=== PATIENT | male | born 1950 | race Caucasian/White ===

== ENCOUNTER 2017-05-02 07:42 | Outpatient (CLI) | payer MEDICARE ==
--- NOTE | 2017-05-02 10:22 | CT ---
CT CHEST AND ABDOMEN WITH IV CONTRAST: TECHNIQUE: Multiple axial tomograms obtained through the chest, abdomen, and pelvis with IV enhancement. HISTORY: Esophageal cancer. Followup. Esophageal surgery in 2015. COMPARISON: There are no comparison exams. FINDINGS: CT CHEST: There are chronic lung changes with mild hyperexpansion. There is a gastric [id number]-[id number] proced ure consistent with a history of prior esophagectomy. There are nonspecific mediastinal lymph nodes seen. There is a carinal lymph node measuring 1.5 cm. There is a small paratracheal lymph node measuring 1.2 cm. There are other tiny subcentimeter parat car[place] lymph nodes identified. Postoperative changes in the mediastinum are noted consistent with t his procedure with numerous surgical clips. There is a small right pleural effusion and there is rig ht basilar atelectasis. An area of pleural-based rounded atelectasis is seen in the peripheral right lower lung. In the left lung, there is a small 5 mm nodule in the mid left upper lobe. There is another tiny 3-4 mm pleural-based nodule in the posterior left lower lobe. No axillary adenopathy. Osseous structures unremarkable. IMPRESSION: 1. Postop changes from esophagectomy and gastric pull-through procedure. 2. Nonspecific mediastinal lymph nodes. A carinal lymph node measures 1.5 cm. 3. Small right effusion and mild right pleural thickening with right basilar atelectasis. These may represent chronic changes from the operative procedure. 4. Small nodule in the left upper lobe and a tiny pleural-based nodule in the left lower lobe as mio cribed above. CT ABDOMEN: The liver, spleen, and pancreas are unremarkable. Adrenal glands and kidneys unremarkable. There is a small low-density lesion in the medial left kidney measuring approximately 7 mm, which is too smal l to characterize, but is suggestive of a small cortical cyst. No evidence of paraaortic adenopathy. The abdominal aorta is ectatic with peripheral calcification. Aortic diameter measured at 2.9 cm indicating mild aneurysmal dilatation. The visualized small bowel loops are normal caliber. There is stool throughout the visualized colon with evidence of diverticula in the left colon. The mid and lower left colon is not imaged on this a bdomen-only exam. The osseous structures are unremarkable. Degenerative changes in the spine. IMPRESSION: 1. Mild aneurysmal dilatation of the abdominal aorta. 2. Tiny low-density probable cystic lesion right kidney. 3. No adenopathy identified. POS: [facility]
[2017-05-02] MEDS ORDERED: Iopamidol 370 76% 100 ML VIAL ONE (17:24)
== END 2017-05-02 07:43 | disposition home or self-care (01) ==
LOC: CT 07:42
PROVIDERS: ATTEND Internal Medicine Medical Oncology
DX: C15.9 Malignant neoplasm of esophagus, unspecified (principal); J98.11 Atelectasis; J90 Pleural effusion, not elsewhere classified; J92.9 Pleural plaque without asbestos; R91.8 Other nonspecific abnormal finding of lung field; I71.4 Abdominal aortic aneurysm, without rupture; Z90.49 Acquired absence of other specified parts of digestive tract
CPT/HCPCS: 71260; 74160

== ENCOUNTER 2017-11-03 09:21 | Outpatient (CLI) | payer MEDICARE ==
--- NOTE | 2017-11-03 11:45 | CT ---
CT OF CHEST AND ABDOMEN PERFORMED WITH INTRAVENOUS CONTRAST ENHANCEMENT: Comparison: 05-02-17 study. History: GE junction carcinoma, status post resection. Referring physician requested comment on mina al and mediastinal lymph nodes, also on pleural effusion and left lung nodules. FINDINGS: The small left upper lobe pulmonary nodule noted on the previous examination is not even appreciated on today's study. There is no evidence of any infiltrative process demonstrated. A pleural based area of nodularity within the left lower lobe is slightly more prominent on today's study but this may be related to slight differences in slice position and measures 6-7 mm as compared to approximately 4-5 mm on the prior study. The right sided pleural effusion and associated parenchymal change remains st able. Patient has undergone a gastric pull up procedure related to partial esophageal resection. The medias tinal lymph nodes appear stable. The largest right paratracheal to slightly pretracheal node measures 11 mm and a subcarinal lymph node is also stable measuring approximately 1 cm in short axis dimensio n. Surgical clips are seen in the mediastinum related to the surgery. CT OF ABDOMEN PERFORMED WITH INTRAVENOUS CONTRAST ENHANCEMENT: The liver and spleen are unremarkable. Pancreas is mildly atrophic. The gallbladder region appears un remarkable. Right and left adrenal glands are stable in appearance, slight nodularity to the left adrenal is agai n noted. Right and left kidneys are normal in size. Small hypodensities involving both kidneys are st atistically most likely related to tiny cysts. There is no significant periaortic adenopathy. The aor ta is ectatic but not aneurysmal. No significant mediastinal lymphadenopathy. IMPRESSION: 1. Fairly stable overall examination. The left upper lobe pulmonary nodule is not definitely identifi ed on this examination. The pleural based left lower lobe nodule is slightly increased in size, but t hese changes could be related to slice position. 2. Stable mediastinal lymph nodes. The patient is status post gastric pull up procedure. 3. Pleural and parenchymal changes in the right lung are unchanged. 4. Borderline aneurysmal dilatation of the abdominal aorta. 5. Slight nodularity to the left adrenal glands, stable. POS: [facility]
== END 2017-11-03 09:22 | disposition home or self-care (01) ==
LOC: SCSCT 09:21
PROVIDERS: ATTEND Internal Medicine Medical Oncology
DX: C16.0 Malignant neoplasm of cardia (principal); R91.1 Solitary pulmonary nodule; I71.4 Abdominal aortic aneurysm, without rupture; E27.8 Other specified disorders of adrenal gland
CPT/HCPCS: 71260; 74160

== ENCOUNTER 2019-04-29 09:06 | Outpatient (CLI) | payer MEDICARE ==
[2019-04-29 09:49] LABS: Estimated GFR-MDRD - POC Greater than 90
--- NOTE | 2019-04-29 11:12 | CT ---
CT OF THE CHEST WITH IV CONTRAST INDICATION: Esophageal cancer COMPARISON: CT of the thorax dated October 30, 2018 and November 03, 2017 FINDINGS: CHEST: Lungs: The left lower lobe subpleural pulmonary nodule has increased in size on image 40 of series 3 now measuring 1.2 x 0.7 cm were previously it measured 0.9 x 0.7 cm. No new pulmonary nodules evident. Scattered emphysema is stable. Pleural space: Small right pleural effusion with right basilar atelectasis persists. Mediastinum: The subcarinal lymph node is slightly smaller now measuring 5 mm representing measured 8 mm. The precarinal lymph node previously measuring 1 cm now measures 9 mm. Right paratracheal lymph node is stable measuring 5 mm Upper abdomen:There is stable postsurgical change of a esophagectomy with gastric pull-through proced ure. Osseous structures: There is a stable osteotomy involving the posterior right sixth rib. There is sc attered degenerative and osteoarthritic changes. Soft tissues:Normal. IMPRESSION: 1. Enlarging subpleural left lower lobe pulmonary nodule. 2. Decrease in size of the mediastinal lymph nodes.
== END 2019-04-29 09:07 | disposition home or self-care (01) ==
LOC: CT 09:06
PROVIDERS: ATTEND Internal Medicine Medical Oncology
DX: C16.9 Malignant neoplasm of stomach, unspecified (principal); R91.1 Solitary pulmonary nodule
CPT/HCPCS: 71260; 74160; 82565

== ENCOUNTER 2019-07-22 08:06 | Outpatient (CLI) | payer MEDICARE ==
--- NOTE | 2019-07-22 11:52 | CT ---
CT CHEST WITH IV CONTRAST CT ABDOMEN WITH IV CONTRAST: Date: 07/22/2019 HISTORY: 68-year-old male with malignant neoplasm of lower third of esophagus. Complete remission. COMPARISON: 04/29/2019. FINDINGS: No mediastinal, hilar, or axillary mass or lymphadenopathy seen. The 9.0 mm precarinal lymph node is stable. Right paratracheal and subcarinal lymph nodes measure about 5.0 mm and are stable. The small right pleural effusion with right basilar atelectasis is again seen. The peripheral nodule in the lef t lower lobe measures 1.2 x 1.0 x 1.0 cm. No new pulmonary nodules are identified. No pericardial or left pleural effusion is seen. The liver, spleen, pancreas, and adrenal glands are normal. No calcified gallstones are seen. Low den sity lesions in the kidneys are again noted, likely cysts. No free air, free fluid, or lymphadenopath y seen in the abdomen. There are vascular calcifications without evidence of aneurysmal dilatation of the thoracoabdominal a leigh. There are degenerative changes in the thoracolumbar spine. No osteolytic or osteoblastic lesion s are seen. IMPRESSION: Minimal enlargement of the left lower lobe lung nodule, otherwise stable exam.
== END 2019-07-22 08:07 | disposition home or self-care (01) ==
LOC: SCSCT 08:06
PROVIDERS: ATTEND Internal Medicine Medical Oncology
DX: C16.0 Malignant neoplasm of cardia (principal); R91.8 Other nonspecific abnormal finding of lung field; J90 Pleural effusion, not elsewhere classified
CPT/HCPCS: 71260; 74160; 82565

== ENCOUNTER 2019-10-28 10:35 | Outpatient (CLI) | payer MEDICARE ==
--- NOTE | 2019-10-28 12:51 | NM ---
Exam: Nuclear medicine MUGA scan HISTORY: Long-term drug therapy. Evaluate ejection fraction COMPARISON: None TECHNIQUE: The patient was injected with 28.3 mCi of technetium 99m tagged red blood cells intravenou sly FINDINGS: There is appropriate motion and contractility of the left ventricle. 59.7% ejection fraction IMPRESSION: 59.7% ejection fraction
== END 2019-10-28 10:36 | disposition home or self-care (01) ==
LOC: NM 10:35
PROVIDERS: ATTEND Internal Medicine Medical Oncology
DX: Z51.11 Encounter for antineoplastic chemotherapy (principal); C15.5 Malignant neoplasm of lower third of esophagus; Z79.899 Other long term (current) drug therapy
CPT/HCPCS: 78472; A9604

== ENCOUNTER 2019-12-21 09:49 | Outpatient (CLI) | payer MEDICARE ==
--- NOTE | 2019-12-21 11:04 | CT ---
CT chest with IV contrast: INDICATIONS:Follow-up esophageal neoplasm. COMPARISON:CT chest abdomen 10/14/2019 FINDINGS: Chronic lung parenchymal changes are again noted with early centrilobular emphysematous change. The pleural-based mass left lower lobe which is been followed slightly smaller today. This mass measu res 7 mm craniocaudal today in the coronal plane were is previous measurements recorded at 11 mm. Small nodule previously described anterior left lung, lingular segment does not appear significantly changed. Tiny pleural-based nodular density posterior left lung base medially is unchanged. Pleural thickening and parenchymal changes in the right lung base secondary to surgical procedure rem ain stable. Postoperative changes from prior esophagectomy procedure appear stable. Small mediastinal lymph nodes are unchanged. Thoracic aorta shows atherosclerotic changes and appears stable. Images through upper abdomen again show small retrocrural lymph node on the right measuring 1.2 cm, s table. Small para-aortic lymph node upper abdomen on the left previously described is stable. Soft tissues and chest wall appear unremarkable. Osseous structures are unremarkable. IMPRESSION: 1. The pleural-based nodular density left lower lobe is slightly smaller today as noted above. The ot her previously described nodular opacities in the left lung appear stable as noted above. 2. CT chest and upper abdomen otherwise stable as detailed above.
== END 2019-12-21 09:50 | disposition home or self-care (01) ==
LOC: SCSCT 09:49
PROVIDERS: ATTEND Internal Medicine Medical Oncology
DX: C15.5 Malignant neoplasm of lower third of esophagus (principal); J98.4 Other disorders of lung
CPT/HCPCS: 71260

== ENCOUNTER 2020-03-10 08:59 | Outpatient (CLI) | payer MEDICARE ==
--- NOTE | 2020-03-10 10:23 | CT ---
CT OF THE CHEST WITH IV CONTRAST INDICATION: Follow-up lung nodule and history of esophageal cancer COMPARISON: December 21, 2019 FINDINGS: CHEST: Lungs: The small subpleural pulmonary nodule of the left lower lobe is less prominent than on the mos t recent comparison now measuring 6 mm were previously measured 1.4 cm. Scattered emphysema is stable. Pleural and subpleural thickening involving the right lung base related to a chronic small ri ght pleural effusion is stable. Pleural space: Small chronic right pleural effusion persists. Pleural thickening involving the right lower hemithorax is stable. Mediastinum: The gastric pull-through procedure appears similar. No lymphadenopathy is evident. There are coronary artery and thoracic aortic calcifications. There are prominent mitral annular calcifications. Upper abdomen:No acute abnormality. Osseous structures: No acute osseous abnormality. No destructive osteolytic or osteoblastic lesion i s identified. There is scattered degenerative and osteoarthritic changes. Soft tissues:Normal. IMPRESSION: 1. Decrease in size of the small subpleural nodularity involving the left lower lobe. 2. Stable postprocedural change of esophagectomy with gastric pull-through without evidence of locali zed recurrent disease. 3. Persistent chronic small right pleural effusion with right basilar pleural thickening and subpleur al subsegmental atelectasis.
== END 2020-03-10 09:00 | disposition home or self-care (01) ==
LOC: SCSCT 08:59
PROVIDERS: ATTEND Internal Medicine Medical Oncology
DX: R91.1 Solitary pulmonary nodule (principal); J90 Pleural effusion, not elsewhere classified; J92.9 Pleural plaque without asbestos; J98.11 Atelectasis; J98.4 Other disorders of lung; Z98.890 Other specified postprocedural states
CPT/HCPCS: 71260

== ENCOUNTER 2020-03-17 09:28 | Observation (INO) | payer MEDICARE ==
[2020-03-17 10:45] LABS: Mean Corpuscular HGB CONC 33.6 g/dL (32.0-36.0); Mean Corpuscular Hemoglobin 35.4 pg (27.0-31.0); RBC Distribution Width 17.1 % (11.5-14.5); Red Blood Cell (RBC) Count 1.98 mill/uL (4.70-6.10); White Blood Cell (WBC) Count 13.6 thou/uL (4.8-10.8)
[2020-03-17 11:15] LABS: ALT (SGPT) 20 U/L (8-55); AST (SGOT) 25 U/L (5-34); Albumin 2.9 g/dL (3.4-4.8); Alkaline Phosphatase 94 U/L (40-110); Anion Gap 11 mmol/L (10-20); BUN (Urea Nitrogen) 16 mg/dL (8.4-25.7); Bilirubin, Total 0.9 mg/dL (0.2-1.2); Calc. Creatinine Clearance 0 mL/min (70-130); Carbon Dioxide 24 mmol/L (23-31); Chloride 104 mmol/L (98-107); Estimated GFR-MDRD Greater than 90; Globulin 2.4 g/dL (2.4-3.5); Glucose 132 mg/dL (83-110); Potassium 3.8 mmol/L (3.5-5.1); Protein, Total 5.3 g/dL (5.8-8.1); Sodium 135 mmol/L (136-145)
[2020-03-17 11:25] LABS: Anisocytosis SLIGHT = 6-15 cells (100X) (0-5/hpf); MDiff Complete? YES; Macrocytosis SLIGHT = 6-15 cells (100X) (0-5/hpf); Mean Platelet Volume 10.8 fL (7.4-10.4); Platelet Count 57 thou/uL (130-400); Platelet Morphology Comment Appears Decreased; Poikilocytosis SLIGHT = 6-15 cells (100X) (0-5/hpf); Tear Drops SLIGHT = 2-5 cells (100X) (0-1/hpf)
--- NOTE | 2020-03-17 13:50 | PDOC.HHP ---
Hospitalist HPI - History of Present Illness SOB, anemia History of Present Illness: 69 YO man with a PMH of esophageal CA and Afib who was sent by his skein yarn drier to the ER due to symptomatic anemia. Pt began chemo in October 2019 due to 3 spots (likely mets) noted on his lungs. He gets chemo biweekly and gets his Hg checked monthly. He was noted by his oncologist to be tachycardic a few days ago so was set to his skein yarn drier for further evaluation. At the skein yarn drier office today, HR was controlled but pt was noted with a hg of 7.0 which was fet to be symptomatic. Pt was therefore sent to the ER. He has denied obvious or occult GI loss. Stools are brown. Denies fever nausea, vomiting or abd pain Hospitalist ROS - Review of Systems Constitutional: reports: weakness. denies: fever, chills, sweats, malaise, other Eyes: denies: pain, vision change, conjunctivae inflammation, eyelid inflammation, redness, other ENT: denies: ear pain, ear discharge, nose pain, nose discharge, nose congestion, mouth pain, mouth swelling, throat pain, throat swelling, other Respiratory: denies: cough, dry, shortness of breath, hemoptysis, SOB with excertion, pleuritic pain, sputum, wheezing, other Gastrointestinal: denies: nausea, vomiting, abdominal pain, diarrhea, constipation, melena, hematochezia, other Genitourinary: denies: dysuria, frequency, incontinence, hematuria, retention, other Musculoskeletal: denies: neck pain, shoulder pain, arm pain, back pain, hand pain, leg pain, foot pain, other Neurological: reports: weakness. denies: numbness, incoordination, change in speech, confusion, seizures, other Hospitalist History - Past Medical History Cardiac: reports: AFIB Heme/Onc: reports: Anemia NOS, Cancer - Past Surgical History Past Surgical History: reports: no pertinent history - Family History Family History: reports: hypertension - Social History Smoking Status: Unknown if ever smoked Alcohol: reports: None Drugs: reports: none Living Situation: With Family Domestic Violence: Negative Activity level: independent ambulation - Exam General Appearance: NAD, awake alert Eye: PERRL Eye - other findings: moderate pallor noted ENT: normocephalic atraumatic, no oropharyngeal lesions Neck: supple, symmetric, no JVD, no thyromegaly Heart: RRR, no murmur, no gallops, no rubs, normal peripheral pulses Respiratory: CTAB, no wheezes, no rales, no ronchi Gastrointestinal: soft, non-tender, non-distended, normal bowel sounds Extremities: no cyanosis, no clubbing, no edema Skin: normal turgor, no lesions, no rashes Neurological: cranial nerve grossly intact, no focal deficits Musculoskeletal: normal strength, no muscle wasting Psychiatric: normal affect, normal behavior, A&O x 3 Hospitalist Results - Labs Result Diagrams: 03/17/20 10:03/17/20 10:31 Lab results: WBC 13.6 thou/uL (4.8-10.8) H 03/17/20 10: Hgb 7.0 g/dL (14.0-18.0) L 03/17/20 10: Hct 20.9 % (42.0-52.0) L 03/17/20 10: MCV 105.0 fL (78.0-98.0) H 03/17/20 10:31 Plt Count 57 thou/uL (130-400) L 03/17/20 10:31 Sodium 135 mmol/L (136-145) L 03/17/20 10:31 Potassium 3.8 mmol/L (3.5-5.1) 03/17/20 10: Chloride 104 mmol/L (98-107) 03/17/20 10: Carbon Dioxide 24 mmol/L (23-31) 03/17/20 10: BUN 16 mg/dL (8.4-25.7) 03/17/20 10:31 Creatinine 0.68 mg/dL (0.7-1.3) L 03/17/20 10:31 Glucose 132 mg/dL (83-110) H 03/17/20 10:31 Lactic Acid 1.0 mmol/L (0.5-2.2) 03/17/20 10: Calcium 8.0 mg/dL (7.8-10.44) 03/17/20 10: Total Bilirubin 0.9 mg/dL (0.2-1.2) 03/17/20 10: AST 25 U/L (5-34) 03/17/20 10:31 ALT 20 U/L (8-55) 03/17/20 10:31 Alkaline Phosphatase 94 U/L (40-110) 03/17/20 10:31 Serum Total Protein 5.3 g/dL (5.8-8.1) L 03/17/20 10:31 Albumin 2.9 g/dL (3.4-4.8) L 03/17/20 10:31 Hospitalist H&P A/P - Problem (1) Afib Code(s): I48.91 - UNSPECIFIED ATRIAL FIBRILLATION Status: Acute Qualifiers: Atrial fibrillation type: unspecified Qualified Code(s): I48.91 - Unspecified atrial fibrillation Assessment and Plan: Currently rate controlled. Will cont BB and Digoxin. Monitor on Telemetry. (2) Anemia Code(s): D64.9 - ANEMIA, UNSPECIFIED Status: Acute Qualifiers: Anemia type: unspecified type Qualified Code(s): D64.9 - Anemia, unspecified Assessment and Plan: Likely due to cancer. Pt denies any symp of blood loss. Will check FOBT and FE levels. Will transfuse one unit of PRBCs. Monitor Hg levels. (3) Esophageal cancer Status: Acute Assessment and Plan: Currently getting chemo. Pt can f/u with his Oncologist at d/c. - Plan Plan: PPx: SCDs. CODE: FULL. Dispo: Admit as observation, likely dc tmr.
[2020-03-17 15:03] VITALS: BMI 23.7
[2020-03-17] MEDS ORDERED: FLU VACC QS2020-21(65YR UP)/PF 240 MCG/0.7 ML SYRINGE IM ONE (15:15)
[2020-03-17 19:33] LABS: INR-International Normal Ratio 2.3; Prothrombin Time 25.8 sec (12.0-14.7)
[2020-03-17] MEDS ORDERED: Olmesartan 5 MG TAB PO SCH (21:00)
[2020-03-17] MEDS ORDERED: Warfarin Sodium 2 MG TAB PO SCH (21:00)
[2020-03-17] MEDS ORDERED: Losartan 25 MG TAB PO SCH (21:00)
[2020-03-18 04:33] LABS: INR-International Normal Ratio 2.6; Prothrombin Time 28.6 sec (12.0-14.7)
[2020-03-18] MEDS ORDERED: Atorvastatin Calcium 20 MG TAB PO SCH (09:00)
[2020-03-18] MEDS ORDERED: Losartan 25 MG TAB PO SCH (09:00)
[2020-03-18] MEDS ORDERED: Digoxin 0.125 MG TAB PO SCH (09:00)
[2020-03-18] MEDS ORDERED: Non-Formulary Item 1 EACH (Omeprazole [Omeprazole] 20 MG Capsule.Dr) PO SCH (09:00)
[2020-03-18 09:31] LABS: Hemoglobin 8.1 g/dL (14.0-18.0); Platelet Count 47 thou/uL (130-400)
[2020-03-18] MEDS ORDERED: Furosemide 20 MG/2 ML VIAL IVP SCH (14:45)
[2020-03-18] MEDS ORDERED: Warfarin Sodium 2 MG TAB PO SCH (17:00)
--- NOTE | 2020-03-18 17:13 | PDOC.DS.DS ---
Provider - Provider Date of Admission: 03/17/20 12:34 Date of Discharge: 03/18/20 Admitting Provider: Tre Spain MD Consultations: None Primary Care Physician: Quinten Stoner MD Course - Hospital Course Hospital Course: This is a 69-year-old patient whose medical history includes esophageal cancer currently undergoing immunotherapy on outpatient basis. He was sent into the hospital by his clinical fellow after he was noted to be anemic with a hemoglobin of 7.1. He has not had any issues with rectal bleeding. He denied any dark stools. Reportedly his hemoglobin was 7 when he arrived at his clinical fellow clinic and he was symptomatic and he was advised to go to the hospital for an evaluation. He arrived here where his lab work was essentially unremarkable with exception of his hemoglobin that was 7.1. He has since been transfused 2 units of packed red cells with improvement in his hemoglobin. He otherwise is completely asymptomatic. He is able to get around fairly well with his cane. At this point in time he seems to have reached optimal hospital benefit and he is going to be discharged home today. Resuscitation Status: 03/17/20 13:13 Resuscitation Status Routine Resuscitation Status: FULL: Full Resuscitation Discussed with: pt - Labs Lab Results: 03/18/20 09:08 03/17/20 10:31 Abnormal Lab Results - Last 48 hrs 03/17/20 10:31: Sodium 135 L, Creatinine 0.68 L, Serum Total Protein 5.3 L, Albumin 2.9 L 03/17/20 10:31: WBC 13.6 H, RBC 1.98 L, Hgb 7.0 L, Hct 20.9 L, MCV 105.0 H, MCH 35.4 H, RDW 17.1 H, Plt Count 57 L, MPV 10.8 H, Plt Morphology Comment Appears Decreased L 03/17/20 11:00: Crossmatch See Detail 03/17/20 19:19: PT 25.8 H 03/18/20 04:05: PT 28.6 H 03/18/20 09:08: Hgb 8.1 L, Hct 23.9 L, Plt Count 47 L - Physical Exam Vitals: Vital Signs (12 hours) Temp Pulse Pulse Resp BP BP Pulse Ox 03/18/20 15:37 98.9 F 102 H 18 121/72 99 03/18/20 15:15 98.0 F 112 H 16 118/71 99 03/18/20 11:02 98.5 F 97 16 130/77 99 03/18/20 08:36 96 03/18/20 08:00 98.6 F 98 17 104/63 97 Weight Admit Weight 109 lb 1.6 oz Weight 190 lb 1.6 oz Physical Exam: The patient was seen and examined on the day of discharge. Problem - Discharge Plan Assessment: Patient was seen and evaluated on the day of discharge and he seems to be doing reasonably well. We will discharge him home. - Time spent with Patient (mins): 30 Plan - Discharge Medications Home Medications: Medication Instructions Recorded Confirmed Type Atorvastatin Calcium [Lipitor] 20 mg PO DAILY 03/17/20 03/17/20 History Digoxin [Lanoxin] 0.125 mg PO DAILY 03/17/20 03/17/20 History Metoprolol Succinate [Toprol XL] 50 mg PO DAILY 03/17/20 03/17/20 History Olmesartan Medoxomil [Benicar] 10 mg PO DAILY 03/17/20 03/17/20 History Omeprazole 20 mg PO DAILY 03/17/20 03/17/20 History Warfarin Sodium [Coumadin] 2 mg PO DAILY 03/17/20 03/17/20 History Allergies: No Known Drug Allergies Allergy (Verified 03/17/20 13:04) - Discharge Instructions Activity:: Activity as Tolerated Nourishment:: Heart Healthy Diet Therapies:: Home Health Equipment/Supplies:: Not Applicable IV Therapy:: Not Applicable - Follow up Plan Referrals: Quinten Stoner MD [Primary Care Provider] - Disposition: HOME Quality - Care Measures CORE MEASURES:: N/A
[2020-03-18 18:50] VITALS: BP 123/80; TEMP 98.7
[2020-03-20 00:13] LABS: SARS-CoV-2 MS2 Positive; SARS-CoV-2 N Gene Negative; SARS-CoV-2 S Gene Negative; SARS-CoV-2 by NAA Not Detected (Not Detected); SARS-CoV-2 orf1ab Negative
== END 2020-03-18 18:37 | disposition home or self-care (01) ==
LOC: ERS 09:28 → 2NO 12:34
PROVIDERS: ADMIT Hospitalist; ATTEND Hospitalist
DX: D64.9 Anemia, unspecified (principal); I48.91 Unspecified atrial fibrillation; C15.9 Malignant neoplasm of esophagus, unspecified; Z79.01 Long term (current) use of anticoagulants; Z79.899 Other long term (current) drug therapy; Z87.891 Personal history of nicotine dependence; Z20.828 Contact with and (suspected) exposure to other viral communicable diseases
CPT/HCPCS: 36415; 36430; 80053; 82274; 83605; 85014; 85018; 85025; 85049; 85610; 86850; 86900; 86901; 87635; 93005; J1642; J1940; P9016; U0003

== ENCOUNTER 2020-03-20 09:42 | Inpatient (IN) | payer MEDICARE ==
[2020-03-20 10:27] LABS: INR-International Normal Ratio 1.6; Prothrombin Time 19.8 sec (12.0-14.7)
[2020-03-20 10:41] LABS: Digoxin 0.41 ng/mL (0.8-2.0)
[2020-03-20 10:42] LABS: ALT (SGPT) 21 U/L (8-55); AST (SGOT) 30 U/L (5-34); Albumin 3.5 g/dL (3.4-4.8); Alkaline Phosphatase 77 U/L (40-110); Anion Gap 17 mmol/L (10-20); BUN (Urea Nitrogen) 18 mg/dL (8.4-25.7); Bilirubin, Total 1.7 mg/dL (0.2-1.2); Calc. Creatinine Clearance 0 mL/min (70-130); Calcium 8.8 mg/dL (7.8-10.44); Carbon Dioxide 26 mmol/L (23-31); Chloride 97 mmol/L (98-107); Estimated GFR-MDRD 82; Globulin 2.8 g/dL (2.4-3.5); Glucose 163 mg/dL (83-110); Potassium 4.8 mmol/L (3.5-5.1); Protein, Total 6.3 g/dL (5.8-8.1); Sodium 135 mmol/L (136-145)
--- NOTE | 2020-03-20 10:46 | RAD ---
PORTABLE CHEST 1 VIEW: Date: 03/20/2020 Time: 1031 hours HISTORY: Chest pain. Near syncope. Esophageal cancer. COMPARISON: Strip Stamp Straightener film from CT chest of 03/10/2020. FINDINGS/IMPRESSION: The heart size is normal. A small right pleural effusion is again seen. There has been interval place ment of a right internal jugular Port-A-Cath with tip in the projection of the SVC. No pneumothoraces are seen. No lobar consolidation or left pleural effusion identified. POS: [facility]
[2020-03-20 10:52] LABS: Hemoglobin 9.4 g/dL (14.0-18.0); Mean Corpuscular HGB CONC 35.3 g/dL (32.0-36.0); Mean Corpuscular Hemoglobin 35.7 pg (27.0-31.0); Mean Platelet Volume 15.4 fL (7.4-10.4); Platelet Count 16 thou/uL (130-400); RBC Distribution Width 15.7 % (11.5-14.5); Red Blood Cell (RBC) Count 2.62 mill/uL (4.70-6.10); White Blood Cell (WBC) Count 0.5 thou/uL (4.8-10.8)
[2020-03-20] MEDS ORDERED: Cefepime 2 GM VIAL ONE (10:57)
[2020-03-20 11:18] LABS: Lymphocytes 85 % (21-51); MDiff Complete? YES; Monocytes 7 % (0-10); Neutrophil 4 % (42-75); Platelet Morphology Comment Appears Decreased; RBC Morphology Normal
[2020-03-20] MEDS ORDERED: Vancomycin 1.5 GRAM/300 ML BAG 1.5 GM in Premix Bag 1 BAG IVPB SCH (11:30)
[2020-03-20] MEDS ORDERED: Senokot S 8.6-50 MG TAB PO PRN (12:09)
[2020-03-20] MEDS ORDERED: Acetaminophen 325 MG TAB PO PRN (12:09)
[2020-03-20] MEDS ORDERED: Sodium Chloride 0.9% 1,000 ML IV SCH (12:15)
--- NOTE | 2020-03-20 12:58 | CT ---
CT PULMONARY ANGIOGRAM WITH IV CONTRAST AND 3D POSTPROCESSING: Date: 03/20/2020 HISTORY: Near syncope. Hypertension. Tachycardia. History of esophageal cancer. FINDINGS: Comparison made with CT chest of 03/10/2020. There is good contrast opacification of the pulmonary arterial vasculature without filling defects to suggest pulmonary embolism. The thoracic aorta is well opacified without aneurysm. The chronic small right pleural effusion with right basilar pleural thickening and subpleural subsegm ental atelectatic changes are unchanged. The peripheral 6.0 mm nodule in the left lower lobe has a so mewhat linear appearance with adjacent pleural thickening. The gastric pull-through procedure appears similar. There are degenerative changes in the spine. No p neumothoraces or lobar consolidation seen. IMPRESSION: No CT evidence for pulmonary embolism. POS: [facility]
[2020-03-20] MEDS ORDERED: Diltiazem 125 MG in Sodium Chloride 0.9% 100 ML IVPB SCH (13:30)
[2020-03-20] MEDS ORDERED: Iopamidol-370 76% 500 ML 1 ML ONE (13:46)
[2020-03-20 14:03] LABS: Lactic Acid 1.1 mmol/L (0.5-2.2)
[2020-03-20 14:11] LABS: Troponin I 0.011 ng/mL (< 0.028)
[2020-03-20 14:39] LABS: SARS-CoV-2 NAA Rapid Test Not Detected (NotDetected)
[2020-03-20 17:31] LABS: Troponin I 0.014 ng/mL (< 0.028)
[2020-03-20] MEDS ORDERED: Diltiazem 125 MG/25 ML ONE (18:56)
--- NOTE | 2020-03-20 22:28 | HP ---
CHIEF COMPLAINT: Generalized weakness, presyncope. HISTORY OF PRESENT ILLNESS: The patient is a very pleasant 69-year-old male, with a past medical history of esophageal cancer with possible mets to the lung, currently treated with chemotherapy. He gets it every 2 weeks. Last chemo was about last , who presents to the hospital with near syncope. 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 The patient stated that last , he did present to the ER with dizziness and weakness and at this time he was given some blood transfusion and fluids and was discharged on Friday, which was the . The patient stated that around 9:00 am today he was supposed to travel to his primary care doctor where he had an experience of fecal incontinence. He went back home to get himself cleaned up and he called his doctor about what had happened and his physician informed him to come into the ER. The patient also states that he felt lightheaded, dizzy. He felt he had some palpitations. He felt this way especially when he was standing up. In the ER, he was noted to be in atrial fibrillation with RVR in the heart rate of 150 with profound hypotension. The patient states that he has not been eating or drinking very much for the past few days. He does not have an appetite. At this time, he was not treated with any medications. He was just given some IV hydration and his tachycardia improved without any problems. The patient is on warfarin for his atrial fibrillation. REVIEW OF SYSTEMS: All negative except for the ones mentioned in the HPI. PAST SURGICAL HISTORY: He has esophageal cancer resection. SOCIAL HISTORY: He is a remote smoker, one or two packs per day. Drinks occasionally without any problems. He is a full code. No recreational drug use. He lives with his . FAMILY HISTORY: No history of heart disease or strokes. MEDICATIONS: He is on digoxin, warfarin, carboplatin and Taxol. ALLERGIES: HE HAS NO KNOWN DRUG ALLERGIES. PHYSICAL EXAMINATION: VITAL SIGNS: Temperature of 99.5, respiration 20, pulse of 106, 144/96, 97% on room air. GENERAL: He is awake, alert, and oriented x3. Does not appear in distress. CV: He is irregularly irregular. LUNGS: Clear to auscultation. No rhonchi or wheezes noted. ABDOMEN: Soft and nontender. Bowel sounds are present x2. EXTREMITIES: He has 1+ lower extremity edema. NEUROVASCULAR: There are no focal deficits noted. SKIN: He appears a little pale, however, no cuts or bruises noted. However, he does have significant non palpable purpura to his both hands, which he stated started today. LABORATORY RESULTS: As of the following; WBC of 0.5, hemoglobin of 9.4, hematocrit of 26.6, platelets of 16. He does not have any bands. His neutrophil percentage is 4. Chemistry: Sodium of 135, potassium 4.8, BUN of 18, creatinine 0.91. His lactic acid is 3. His troponins x3 were negative. His serology was negative. His INR was 1.6. He did have a CTA. ASSESSMENT AND PLAN: The patient is a very pleasant 69-year-old male, who presents to the hospital with complaints of presyncope. 1. Atrial fibrillation with rapid ventricular response. We will start patient on some Cardizem. At times he is normal; however, at times he goes up to 150. Cardiology has been consulted. We will continue his home warfarin and also his digoxin. His digoxin level was a little bit subtherapeutic at 0.41. 2. Neutropenia. The patient does not have any fever, however, he states he feels cold. He stated that he did receive a bone stimulating agent on Friday of last week. I will start him on some cefepime just for prophylaxis for now. 3. Thrombocytopenia. His platelets were 16. He is at high risk for bleeding. In this case I will hold off on the Coumadin for now and we will continue to monitor. This is most likely from his chemotherapy. 4. Hyperlipidemia. We will continue his home medication. 5. Deep venous thrombosis prophylaxis. We will put patient on some sequential compression device. Job ID: [id number]
[2020-03-21 01:31] LABS: Bilirubin Negative (Negative); Blood, Urine Negative (Negative); Clarity Clear (Clear); Glucose, Urine (Dipstick) Normal (Negative); Ketone, Urine Trace mg/dL (Negative); Leukocyte Negative Leu/uL (Negative); Nitrite Negative (Negative); Protein, Urine (Dipstick) 20 mg/dL (Neg-Trace); Specific Gravity, Urine 1.049 (1.002-1.036); Urobilinogen Normal mg/dL (Less than 2)
[2020-03-21 01:47] VITALS: BMI 24.0
[2020-03-21] MEDS: Cefepime 2 GM in Sodium Chloride 0.9% 100 ML IVPB SCH ×3 (02:05→23:43)
[2020-03-21 05:11] LABS: Anion Gap 12 mmol/L (10-20); BUN (Urea Nitrogen) 16 mg/dL (8.4-25.7); Calc. Creatinine Clearance 121 mL/min (70-130); Calcium 8.2 mg/dL (7.8-10.44); Carbon Dioxide 23 mmol/L (23-31); Chloride 103 mmol/L (98-107); Estimated GFR-MDRD Greater than 90; Glucose 117 mg/dL (83-110); Potassium 3.7 mmol/L (3.5-5.1); Sodium 134 mmol/L (136-145)
[2020-03-21 05:12] LABS: Hemoglobin 7.1 g/dL (14.0-18.0); Mean Corpuscular HGB CONC 34.8 g/dL (32.0-36.0); Mean Corpuscular Hemoglobin 35.4 pg (27.0-31.0); Mean Platelet Volume 15.2 fL (7.4-10.4); Platelet Count 12 thou/uL (130-400); RBC Distribution Width 15.4 % (11.5-14.5); White Blood Cell (WBC) Count 0.6 thou/uL (4.8-10.8)
[2020-03-21 05:29] LABS: Band 16 % (5-11); Hypochromia SLIGHT = 6-15 cells (100X) (0-5/hpf); Lymphocytes 64 % (21-51); MDiff Complete? YES; Macrocytosis SLIGHT = 6-15 cells (100X) (0-5/hpf); Monocytes 12 % (0-10); Neutrophil 8 % (42-75); Platelet Morphology Comment Appears Decreased
[2020-03-21] MEDS: Digoxin 0.125 MG TAB PO SCH (08:12)
[2020-03-21] MEDS ORDERED: FLU VACC QS2020-21(65YR UP)/PF 240 MCG/0.7 ML SYRINGE IM ONE (09:00)
[2020-03-21 10:16] LABS: Hemoglobin 7.4 g/dL (14.0-18.0); Mean Corpuscular HGB CONC 35.4 g/dL (32.0-36.0); Mean Corpuscular Hemoglobin 35.6 pg (27.0-31.0); Mean Platelet Volume 12.1 fL (7.4-10.4); Platelet Count 32 thou/uL (130-400); RBC Distribution Width 15.2 % (11.5-14.5); Red Blood Cell (RBC) Count 2.08 mill/uL (4.70-6.10)
[2020-03-21 10:42] LABS: Band 11 % (5-11); Lymphocytes 28 % (21-51); Monocytes 29 % (0-10); Neutrophil 31 % (42-75)
[2020-03-21 10:45] LABS: Platelet Morphology Comment Appears Decreased
[2020-03-21 11:41] LABS: MDiff Complete? YES
--- NOTE | 2020-03-21 14:55 | CON ---
DATE OF CONSULTATION: REASON FOR CONSULTATION: Weakness, fatigue, and orthostatic hypotension. HISTORY OF PRESENT ILLNESS: Mr. Arreguin is a 69-year-old gentleman who I seen and evaluated in the past. He has a history of chronic atrial fibrillation, on anticoagulation therapy. He recently states he was on his way to his primary care provider where he felt weak, fatigue, and dizzy. He states his last chemo was last week. He was admitted from the office late last week for blood pressure of 70. He was admitted overnight for blood and hydration. He was then discharged. No chest pain, pressure, shortness of breath, or associated symptoms present. PAST MEDICAL HISTORY: 1. Esophageal cancer, followed by Dr. Staples. 2. Chronic atrial fibrillation. 3. Orthostatic hypotension. HOME MEDICATIONS: Include: 1. Coumadin. 2. Omeprazole. 3. Digoxin. 4. Olmesartan. 5. Metoprolol. 6. Atorvastatin. PAST SURGICAL HISTORY: 1. Corneal transplant. 2. Esophageal surgery. 3. Stomach surgery. 4. Cyst removal. FAMILY HISTORY: Negative for CAD. SOCIAL HISTORY: No current tobacco or alcohol use. REVIEW OF SYSTEMS: A 10-point review of systems is reviewed as above, otherwise negative. PHYSICAL EXAMINATION: GENERAL: Patient is a pleasant gentleman who is in no acute distress. The patient appears their stated age. VITAL SIGNS: Blood pressure 120/74, pulse 98, and temperature afebrile. NEUROLOGIC: The patient is alert and oriented x3 with no focal neurologic deficits. HEENT: Sclerae without icterus. Mouth has moist mucous membranes with normal pallor. NECK: No JVD. Carotid upstroke brisk. No bruits bilaterally. LUNGS: Clear to auscultation with unlabored respirations. BACK: No scoliosis or kyphosis. CARDIAC: Irregularly irregular. ABDOMEN: Soft, nontender, nondistended. No peritoneal signs present. No hepatosplenomegaly. No abnormal striae. EXTREMITIES: 2+ femoral and 2+ dorsalis pedis pulses. No cyanosis, clubbing, or edema. SKIN: No gross abnormalities. PERTINENT LABORATORY DATA: Hemoglobin 7.4, down from 9.2, dated 03/20/2020; platelet count 12,000 and after transfusion 32,000. IMPRESSION: 1. Atrial fibrillation. 2. Esophageal cancer. 3. Presyncope. RECOMMENDATIONS: The patient appears to be rate controlled. His white blood cell count and platelet count in addition to hemoglobin are markedly low, likely related to chemotherapy. We will hold anticoagulation therapy for now given low platelet count. He did require platelet transfusion. The patient does have a history of orthostatic hypotension, which certainly may be difficult to treat based on his previous chemotherapy. We will check and see what his current chemo treatment is and see whether this is associated with orthostatic hypotension. We would like to have his blood pressure run higher than low. We will increase his increase metoprolol if needed to wean off Cardizem. Continue digoxin. Job ID: [id number]
--- NOTE | 2020-03-21 19:53 | CON ---
DATE OF CONSULTATION: REASON FOR CONSULT: GE junction adenocarcinoma. HISTORY OF PRESENT ILLNESS: Mr. 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 He had neoadjuvant chemoradiotherapy followed by resection in July of 2014. Unfortunately, he had disease progression in his lungs in July of this year. He was started on chemotherapy with weekly cisplatin, Taxol, and Herceptin. He was tolerating treatment well and in fact showed a good response with a decrease in the size of a subpleural pulmonary nodule from 1.4 cm to 6 mm. His chemotherapy was dose reduced and we have been slowly increasing his dose to the normal dose. His last treatment was his first cycle where he received full doses of carboplatin and Taxol. He did receive Udenyca posttreatment. He was feeling weak, and saw Dr. Staples on the . His heart rate was in the 140 and 50s. Case was discussed with Dr. Ann, who saw him the next morning and then sent him to the emergency room for evaluation. He was in atrial fibrillation with RVR. He was pancytopenic on admission with a white count of 500, a platelet count of 16,000, and hemoglobin 9.4. He trended downward and required blood transfusion. He was placed on a Cardizem drip and he is now rate controlled. He was seen at bedside, sitting in the chair with no complaints. He does feel dizzy when he stands. 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 PAST MEDICAL HISTORY: 1. 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 2. Atrial fibrillation. 3. Reflux. 4. Hepatitis. 5. Type 2 diabetes. 6. Hypertension. PAST SURGICAL HISTORY: Esophageal resection. ALLERGIES: NO KNOWN DRUG ALLERGIES. HOME MEDICATIONS: 1. Benicar. 2. Multivitamin. 3. Coumadin. 4. Lanoxin. 5. Lipitor. 6. Prilosec. 7. Toprol-XL. FAMILY HISTORY: Noncontributory. SOCIAL HISTORY: , has three stepchildren. Lives with his spouse. No alcohol, tobacco, or illicit drug use. REVIEW OF SYSTEMS: 12-point review of systems is negative, except for noted in the HPI. PHYSICAL EXAMINATION: VITAL SIGNS: Temperature is 98.0, pulse is 92, respiratory rate 16, BP is 121/72, and he is 97% on room air. GENERAL: Well-developed, well-nourished male, in no acute distress. HEENT: Normocephalic, atraumatic. Pupils are equal and reactive to light. CV: Regular rate and rhythm. LUNGS: Unlabored. ABDOMEN: Soft. NEUROLOGIC: Nonfocal. PERTINENT LABORATORY DATA AND X-RAYS: Current WBCs are 1.0, hemoglobin 7.4, hematocrit 20.9, and platelet count 32,000. He has 31% neutrophils, 11% bands, 28% lymphocytes, and 29% monocytes. PT is 19.8, INR is 1.6, and PTT is 36. Sodium is 134, potassium 3.7, chloride 103, CO2 is 23, BUN is 16, creatinine 0.69, lactic acid 1.1, calcium 8.2, bilirubin 1.7, AST is 30, ALT is 21, and alk phos is 77. Troponin is negative. Serum total protein 6.3, albumin 3.5, and globulin 2.8. Urine is negative. COVID PCR negative. CT angio showed no evidence of pulmonary emboli. ASSESSMENT: 1. Syncopal episode, likely related to atrial fibrillation. 2. Recurrent adenocarcinoma of the gastroesophageal junction, currently on carboplatin, Taxol, and Herceptin chemotherapy. 3. Pancytopenia secondary to chemotherapy. DISCUSSION: Patient's heart rate is now controlled. His white count has improved. I do expect it would continue to improve over the next several days. He did receive Udenyca and he is starting to have bands on his differential. I think his platelets will continue to improve as well. His Coumadin has been held and should be held until his platelet count is greater than 50,000. This was his first cycle with full-dose carboplatin and Taxol. We will discuss the dose reduction again with Dr. Staples. Thank you for the consult. We will follow with his hospital course. Job ID: [id number]
[2020-03-21] MEDS: Atorvastatin Calcium 20 MG TAB PO SCH (20:38)
[2020-03-22] MEDS: Digoxin 0.125 MG TAB PO SCH (09:13)
[2020-03-22 09:40] LABS: Hemoglobin 8.4 g/dL (14.0-18.0); Mean Corpuscular HGB CONC 35.5 g/dL (32.0-36.0); Mean Corpuscular Hemoglobin 35.2 pg (27.0-31.0); Mean Corpuscular Volume 99.3 fL (78.0-98.0); Mean Platelet Volume 12.9 fL (7.4-10.4); Platelet Count 35 thou/uL (130-400); Red Blood Cell (RBC) Count 2.39 mill/uL (4.70-6.10); White Blood Cell (WBC) Count 3.7 thou/uL (4.8-10.8)
[2020-03-22 10:16] LABS: Band 26 % (5-11); Lymphocytes 10 % (21-51); MDiff Complete? YES; Metamyelocyte 1 % (0-0); Monocytes 12 % (0-10); Neutrophil 49 % (42-75); Platelet Morphology Comment Appears Decreased; Polychromasia SLIGHT = 2-3 cells (100X) (0-2/hpf); Reactive Lymphocytes 2 % (0-10)
[2020-03-22] MEDS: Cefepime 2 GM in Sodium Chloride 0.9% 100 ML IVPB SCH ×2 (10:20→21:55)
--- NOTE | 2020-03-22 10:48 | PDOC.HOSPP ---
- Subjective Encounter Date: 03/21/20 Encounter Time: 11:45 Subjective: pt up in bed felt dizzy - Objective Vital Signs & Weight: Vital Signs (12 hours) Temp Pulse Resp BP Pulse Ox 03/22/20 09:13 82 03/22/20 07:25 98.4 F 96 17 116/65 97 03/22/20 03:22 98.3 F 94 15 123/72 97 Weight Weight 192 lb Most Recent Monitor Data NIBP 121/80 I&O: 03/21/20 03/22/20 03/23/20 06:59 06:59 06:59 Intake Total 1630 Output Total 700 Balance 930 Result Diagrams: 03/22/20 09:13 03/21/20 04:07 Hospitalist ROS - Review of Systems Cardiovascular: reports: light headedness Gastrointestinal: denies: nausea, vomiting, abdominal pain, diarrhea, constipation, melena, hematochezia, other Genitourinary: denies: dysuria, frequency, incontinence, hematuria, retention, other Musculoskeletal: denies: neck pain, shoulder pain, arm pain, back pain, hand pain, leg pain, foot pain, other - Medication Medications: Active Medications Generic Name Dose Route Start Last Admin Trade Name Freq PRN Reason Stop Dose Admin Atorvastatin Calcium 20 mg 03/21/20 21:00 03/21/20 20:38 Atorvastatin Calcium 20 Mg Tab PO 20 mg HS VANIA Administration Digoxin 0.125 mg 03/21/20 09:00 03/22/20 09:13 Digoxin 0.125 Mg Tab PO 0.125 mg DAILY VANIA Administration Cefepime HCl 2 gm/ Sodium 100 mls @ 200 mls/hr 03/20/20 23:00 03/22/20 10:20 Chloride IVPB 100 mls 1100,2300 VANIA Administration Metoprolol Succinate 50 mg 03/21/20 09:00 03/22/20 09:14 Metoprolol Succinate Xl 50 Mg Tab PO 50 mg DAILY VANIA Administration Pantoprazole Sodium 40 mg 03/21/20 09:00 03/22/20 09:14 Pantoprazole 40 Mg Tab PO 40 mg DAILY VANIA Administration Sodium Chloride 10 ml 03/21/20 09:00 03/22/20 09:15 Flush - Normal Saline 10 Ml Syringe IVF 10 ml Q12HR VANIA Administration - Exam Heart: negative: RRR, no murmur, no gallops, no rubs, normal peripheral pulses, irregular, diminshed peripheral pulses, murmur present, II/IV, III/IV Respiratory: negative: CTAB, no wheezes, no rales, no ronchi, normal chest expansion, no tachypnea, normal percussion, rales, rhonchi, tachypneic, wheezes Gastrointestinal: negative: soft, non-tender, non-distended, normal bowel sounds, no palpable masses, no hepatomegaly, no splenomegaly, no bruit, no guarding, no rigidity, tender to palpation, distended, diminished bowl sounds, voluntary guarding Extremities - other findings: mild erythema noted to bilateral hands Hosp A/P (1) Dizziness Code(s): R42 - DIZZINESS AND GIDDINESS Status: Acute (2) Afib Code(s): I48.91 - UNSPECIFIED ATRIAL FIBRILLATION Status: Acute Qualifiers: Atrial fibrillation type: unspecified Qualified Code(s): I48.91 - Unspecified atrial fibrillation (3) Anemia Code(s): D64.9 - ANEMIA, UNSPECIFIED Status: Acute Qualifiers: Anemia type: unspecified type Qualified Code(s): D64.9 - Anemia, unspecified (4) Esophageal cancer Status: Acute (5) Neutropenia Code(s): D70.9 - NEUTROPENIA, UNSPECIFIED Status: Acute - Plan pt got hypotensive when he was gotten up and became tachycardiac. will hold coumadin given his low platelets. will continue prophylactic antibiotics. will add prn ensure
--- NOTE | 2020-03-22 10:53 | PDOC.HOSPP ---
- Subjective Encounter Date: 03/22/20 Encounter Time: 10:45 Subjective: pt up in bed feels much better - Objective Vital Signs & Weight: Vital Signs (12 hours) Temp Pulse Resp BP Pulse Ox 03/22/20 09:13 82 03/22/20 07:25 98.4 F 96 17 116/65 97 03/22/20 03:22 98.3 F 94 15 123/72 97 Weight Weight 192 lb Most Recent Monitor Data NIBP 121/80 I&O: 03/21/20 03/22/20 03/23/20 06:59 06:59 06:59 Intake Total 1630 Output Total 700 Balance 930 Result Diagrams: 03/22/20 09:13 03/21/20 04:07 Hospitalist ROS - Review of Systems Cardiovascular: denies: chest pain, palpitations, orthopnea, paroxysmal noc. dyspnea, edema, light headedness, other Gastrointestinal: denies: nausea, vomiting, abdominal pain, diarrhea, consti pation, melena, hematochezia, other Genitourinary: denies: dysuria, frequency, incontinence, hematuria, retention, other - Medication Medications: Active Medications Generic Name Dose Route Start Last Admin Trade Name Freq PRN Reason Stop Dose Admin Atorvastatin Calcium 20 mg 03/21/20 21:00 03/21/20 20:38 Atorvastatin Calcium 20 Mg Tab PO 20 mg HS VANIA Administration Digoxin 0.125 mg 03/21/20 09:00 03/22/20 09:13 Digoxin 0.125 Mg Tab PO 0.125 mg DAILY VANIA Administration Cefepime HCl 2 gm/ Sodium 100 mls @ 200 mls/hr 03/20/20 23:00 03/22/20 10:20 Chloride IVPB 100 mls 1100,2300 VANIA Administration Metoprolol Succinate 50 mg 03/21/20 09:00 03/22/20 09:14 Metoprolol Succinate Xl 50 Mg Tab PO 50 mg DAILY VANIA Administration Pantoprazole Sodium 40 mg 03/21/20 09:00 03/22/20 09:14 Pantoprazole 40 Mg Tab PO 40 mg DAILY VANIA Administration Sodium Chloride 10 ml 03/21/20 09:00 03/22/20 09:15 Flush - Normal Saline 10 Ml Syringe IVF 10 ml Q12HR VANIA Administration - Exam Heart: negative: RRR, no murmur, no gallops, no rubs, normal peripheral pulses, irregular, diminshed peripheral pulses, murmur present, II/IV, III/IV Respiratory: negative: CTAB, no wheezes, no rales, no ronchi, normal chest expansion, no tachypnea, normal percussion, rales, rhonchi, tachypneic, wheezes Gastrointestinal: negative: soft, non-tender, non-distended, normal bowel sounds, no palpable masses, no hepatomegaly, no splenomegaly, no bruit, no guarding, no rigidity, tender to palpation, distended, diminished bowl sounds, voluntary guarding Extremities - other findings: erythema to bilateral hands Hosp A/P (1) Dizziness Code(s): R42 - DIZZINESS AND GIDDINESS Status: Acute (2) Afib Code(s): I48.91 - UNSPECIFIED ATRIAL FIBRILLATION Status: Acute Qualifiers: Atrial fibrillation type: unspecified Qualified Code(s): I48.91 - Unspecified atrial fibrillation (3) Anemia Code(s): D64.9 - ANEMIA, UNSPECIFIED Status: Acute Qualifiers: Anemia type: unspecified type Qualified Code(s): D64.9 - Anemia, u nspecified (4) Esophageal cancer Status: Acute (5) Neutropenia Code(s): D70.9 - NEUTROPENIA, UNSPECIFIED Status: Acute (6) Protein-calorie malnutrition, moderate Code(s): E44.0 - MODERATE PROTEIN-CALORIE MALNUTRITION Status: Acute - Plan pt got hypotensive when he was gotten up and became tachycardiac. will hold coumadin given his low platelets. will continue prophylactic antibiotics. will add prn ensure 03/22 pt tolerating his oral intake. He has been up and felt well today. will con tinue to hold Coumadin. s/p one unit of blood and platelets. His counts are trending up. will continue abx for now. possible discharge in the next 24-48hr.
[2020-03-22] MEDS: Atorvastatin Calcium 20 MG TAB PO SCH (21:55)
--- NOTE | 2020-03-23 06:40 | PRG ---
DATE OF SERVICE: 03/22/2020 SUBJECTIVE: Mr. Arreguin states he is doing better. No current complaints. He states he got up to the bathroom with no significant dizziness or lightheadedness. Heart rate appears to be better controlled. OBJECTIVE: VITAL SIGNS: 135/90, pulse 82, respirations 20. LUNGS: Clear to auscultation. HEART: Irregularly irregular. ABDOMEN: Soft, nontender, nondistended. EXTREMITIES: No edema. PERTINENT LABORATORY DATA: Hemoglobin 8.4, white blood cell count 3.7, platelet count 35,000. IMPRESSION: 1. Presyncope. 2. Atrial fibrillation. 3. Metastatic esophageal cancer, on chemo. RECOMMENDATIONS: Mr. Arreguin appears to be improving. We will continue to hold anticoagulation therapy until his platelet count is above 50,000. Continue to supplement him with IV fluids. The patient has had orthostatic hypotension in the past. Would recommend orthostatics q.a.m. Job ID: [id number]
[2020-03-23] MEDS: Digoxin 0.125 MG TAB PO SCH (08:26)
[2020-03-23] MEDS ORDERED: Sodium Chloride 0.9% 500 ML IV SCH (11:00)
[2020-03-23] MEDS ORDERED: Sodium Chloride 0.9% 500 ML IVPB SCH (11:00)
[2020-03-23] MEDS: Cefepime 2 GM in Sodium Chloride 0.9% 100 ML IVPB SCH ×2 (11:18→22:01)
[2020-03-23 13:21] LABS: Digoxin 0.28 ng/mL (0.8-2.0)
[2020-03-23] MEDS ORDERED: Digoxin 0.5 MG/2 ML AMP SLOW IVP SCH ×2 (13:30→21:00)
--- NOTE | 2020-03-23 17:45 | PRG ---
DATE OF SERVICE: 03/23/2020 SUBJECTIVE: Mr. Arreguin feels better overall. He continues to have significant orthostasis. His orthostasis is about 20 mmHg. He does have increased heart rate in the 160s with standing and ambulation. OBJECTIVE: VITAL SIGNS: Blood pressure 117/62, pulse 86, respirations 20. LUNGS: Clear to auscultation. HEART: Irregularly irregular. ABDOMEN: Soft, nontender, nondistended. EXTREMITIES: No edema. PERTINENT LABORATORY DATA: Hemoglobin 8.4. Creatinine 0.69. IMPRESSION: 1. Atrial fibrillation. 2. Metastatic esophageal cancer. 3. Orthostatic hypotension. RECOMMENDATIONS: Certainly, it is very difficult to try and control the patient's heart rate in addition to a volume status. His volume status appears improved. We will continue with IV fluids. We will switch his metoprolol to Cardizem. There seems to be less blood pressure effects noted with Cardizem versus beta-elizabeth therapy. Continues to have hypotension after requiring calcium-channel elizabeth, beta-elizabeth therapy. We will consider AV cuauhtemoc ablation and pacemaker placement. The patient at this point is not interested, so we will revisit tomorrow. Agree with adding digoxin. Job ID: [id number]
[2020-03-23] MEDS: Atorvastatin Calcium 20 MG TAB PO SCH (21:05)
[2020-03-24 05:20] LABS: Digoxin 1.02 ng/mL (0.8-2.0)
[2020-03-24] MEDS: Digoxin 0.125 MG TAB PO SCH (08:12)
[2020-03-24] MEDS: Digoxin 0.25 MG TAB PO SCH ×2 (08:15→12:32)
--- NOTE | 2020-03-24 09:54 | PDOC.HOSPP ---
- Subjective Encounter Date: 03/23/20 Encounter Time: 11:45 Subjective: pt up in bed still feels tachycardia on ambulation - Objective Vital Signs & Weight: Vital Signs (12 hours) Temp Pulse Resp BP Pulse Ox 03/24/20 04:41 99 F 85 16 102/55 L 98 Weight Weight 191 lb 6.4 oz Most Recent Monitor Data NIBP 121/80 I&O: 03/23/20 03/24/20 03/25/20 06:59 06:59 06:59 Intake Total 1020 Balance 1020 Result Diagrams: 03/22/20 09:13 03/21/20 04:07 Hospitalist ROS - Review of Systems Cardiovascular: reports: palpitations. denies: chest pain, orthopnea, paroxysmal noc. dyspnea, edema, light headedness, other Gastrointestinal: denies: nausea, vomiting, abdominal pain, diarrhea, constipation, melena, hematochezia, other - Medication Medications: Active Medications Generic Name Dose Route Start Last Admin Trade Name Freq PRN Reason Stop Dose Admin Atorvastatin Calcium 20 mg 03/21/20 21:00 03/23/20 21:05 Atorvastatin Calcium 20 Mg Tab PO 20 mg HS VANIA Administration Digoxin 0.125 mg 03/21/20 09:00 03/24/20 08:12 Digoxin 0.125 Mg Tab PO 0.125 mg DAILY VANIA Administration Digoxin 0.25 mg 03/24/20 07:00 03/24/20 08:15 Digoxin 0.25 Mg Tab PO 03/24/20 13:01 0.25 mg Q6H VANIA Administration Diltiazem HCl 30 mg 03/23/20 18:00 03/24/20 05:39 Diltiazem Hcl 30 Mg Tablet PO 30 mg Q6HR VANIA Administration Cefepime HCl 2 gm/ Sodium 100 mls @ 200 mls/hr 03/20/20 23:00 03/23/20 22:01 Chloride IVPB 100 mls 1100,2300 VANIA Administration Pantoprazole Sodium 40 mg 03/21/20 09:00 03/24/20 08:12 Pantoprazole 40 Mg Tab PO 40 mg DAILY VANIA Administration Sodium Chloride 10 ml 03/21/20 09:00 03/23/20 21:08 Flush - Normal Saline 10 Ml Syringe IVF 10 ml Q12HR VANIA Administration - Exam Neck: negative: supple, symmetric, no JVD, no thyromegaly, no lymphadenopathy, no carotid bruit, JVD Heart: negative: RRR, no murmur, no gallops, no rubs, normal peripheral pulses, irregular, diminshed peripheral pulses, murmur present, II/IV, III/IV Respiratory: negative: CTAB, no wheezes, no rales, no ronchi, normal chest expansion, no tachypnea, normal percussion, rales, rhonchi, tachypneic, wheezes Gastrointestinal: negative: soft, non-tender, non-distended, normal bowel sounds, no palpable masses, no hepatomegaly, no splenomegaly, no bruit, no guarding, no rigidity, tender to palpation, distended, diminished bowl sounds, voluntary guarding Hosp A/P (1) Dizziness Code(s): R42 - DIZZINESS AND GIDDINESS Status: Acute (2) Afib Code(s): I48.91 - UNSPECIFIED ATRIAL FIBRILLATION Status: Acute Qualifiers: Atrial fibrillation type: unspecified Qualified Code(s): I48.91 - Unspec ified atrial fibrillation (3) Anemia Code(s): D64.9 - ANEMIA, UNSPECIFIED Status: Acute Qualifiers: Anemia type: unspecified type Qualified Code(s): D64.9 - Anemia, unspeci fied (4) Esophageal cancer Status: Acute (5) Neutropenia Code(s): D70.9 - NEUTROPENIA, UNSPECIFIED Status: Acute (6) Protein-calorie malnutrition, moderate Code(s): E44.0 - MODERATE PROTEIN-CALORIE MALNUTRITION Status: Acute - Plan pt got hypotensive when he was gotten up and became tachycardiac. will hold coumadin given his low platelets. will continue prophylactic antibiotics. will add prn ensure 03/22 pt tolerating his oral intake. He has been up and felt well today. will continue to hold Coumadin. s/p one unit of blood and platelets. His counts are trending up. will continue abx for now. possible discharge in the next 24-48hr. 03/23 will give one liter of iv fluids and will given him iv digoxin and will check dig level. spoke with cardiology the next step will be to get a pacemaker.
[2020-03-24] MEDS ORDERED: Sodium Chloride 0.9% 1,000 ML IV SCH ×2 (11:45→19:00)
[2020-03-24] MEDS: Cefepime 2 GM in Sodium Chloride 0.9% 100 ML IVPB SCH (12:29)
--- NOTE | 2020-03-24 13:02 | PRG ---
DATE OF SERVICE: 03/24/2020 SUBJECTIVE: Mr. Arreguin is doing better. He feels better. Less dizziness and lightheadedness. Orthostatics have not been performed today. OBJECTIVE: VITAL SIGNS: Blood pressure 108/59, pulse 91, temperature 98.1. LUNGS: Clear to auscultation. HEART: Irregularly irregular. ABDOMEN: Soft, nontender, and nondistended. EXTREMITIES: No edema. IMPRESSION: 1. Atrial fibrillation. 2. Orthostatic hypotension. 3. Metastatic esophageal cancer. RECOMMENDATIONS: I will continue current dose of Cardizem. He is on low-dose at 30 mg q.6 hours. We will also continue low-dose of digoxin after further loading. We would recommend orthostatics. If stable, it would be okay for discharge from my standpoint. The patient at this point is not for pacemaker implantation. He would require AV cuauhtemoc ablation to control heart rate if not controlled on digoxin and Cardizem. Job ID: [id number]
--- NOTE | 2020-03-24 18:20 | PDOC.HOSPP ---
- Subjective Encounter Date: 03/24/20 Encounter Time: 18:19 Subjective: pt up in bed still gets tachycardia on ambulation - Objective Vital Signs & Weight: Vital Signs (12 hours) Temp Pulse Resp BP Pulse Ox 03/24/20 12:00 98.1 F 91 15 108/59 L 98 03/24/20 08:20 95 03/24/20 08:00 98.3 F 92 16 105/58 L 95 Weight Weight 191 lb 6.4 oz Most Recent Monitor Data NIBP 121/80 I&O: 03/23/20 03/24/20 03/25/20 06:59 06:59 06:59 Intake Total 1020 Balance 1020 Result Diagrams: 03/22/20 09:13 03/21/20 04:07 Hospitalist ROS - Review of Systems Cardiovascular: denies: chest pain, palpitations, orthopnea, paroxysmal noc. dyspnea, edema, light headedness, other Gastrointestinal: denies: nausea, vomiting, abdominal pain, diarrhea, constipation, melena, hematochezia, other Genitourinary: denies: dysuria, frequency, incontinence, hematuria, retention, other Musculoskeletal: denies: neck pain, shoulder pain, arm pain, back pain, hand pain, leg pain, foot pain, other - Medication Medications: Active Medications Generic Name Dose Route Start Last Admin Trade Name Jedq PRN Reason Stop Dose Admin Atorvastatin Calcium 20 mg 03/21/20 21:00 03/23/20 21:05 Atorvastatin Calcium 20 Mg Tab PO 20 mg HS VANIA Administration Digoxin 0.125 mg 03/21/20 09:00 03/24/20 08:12 Digoxin 0.125 Mg Tab PO 0.125 mg DAILY VANIA Administration Diltiazem HCl 30 mg 03/23/20 18:00 03/24/20 12:31 Diltiazem Hcl 30 Mg Tablet PO 30 mg Q6HR VANIA Administration Cefepime HCl 2 gm/ Sodium 100 mls @ 200 mls/hr 03/20/20 23:00 03/24/20 12:29 Chloride IVPB 100 mls 1100,2300 VANIA Administration Pantoprazole Sodium 40 mg 03/21/20 09:00 03/24/20 08:12 Pantoprazole 40 Mg Tab PO 40 mg DAILY VANIA Administration Sodium Chloride 10 ml 03/21/20 09:00 03/24/20 10:42 Flush - Normal Saline 10 Ml Syringe IVF Not Given Q12HR VANIA - Exam Neck: negative: supple, symmetric, no JVD, no thyromegaly, no lymphadenopathy, no carotid bruit, JVD Heart: negative: RRR, no murmur, no gallops, no rubs, normal peripheral pulses, irregular, diminshed peripheral pulses, murmur present, II/IV, III/IV Respiratory: negative: CTAB, no wheezes, no rales, no ronchi, normal chest expansion, no tachypnea, normal percussion, rales, rhonchi, tachypneic, wheezes Gastrointestinal: negative: soft, non-tender, non-distended, normal bowel sounds, no palpable masses, no hepatomegaly, no splenomegaly, no bruit, no guarding, no rigidity, tender to palpation, distended, diminished bowl sounds, voluntary guarding Extremities: 1+ LE edema Hosp A/P (1) Dizziness Code(s): R42 - DIZZINESS AND GIDDINESS Status: Acute (2) Afib Code(s): I48.91 - UNSPECIFIED ATRIAL FIBRILLATION Status: Acute Qualifiers: Atrial fibrillation type: unspecified Qualified Code(s): I48.91 - Unspecified atrial fibrillation (3) Anemia Code(s): D64.9 - ANEMIA, UNSPECIFIED Status: Acute Qualifiers: Anemia type: unspecified type Qualified Code(s): D64.9 - Anemia, unspecified (4) Esophageal cancer Status: Acute (5) Neutropenia Code(s): D70.9 - NEUTROPENIA, UNSPECIFIED Status: Acute (6) Protein-calorie malnutrition, moderate Code(s): E44.0 - MODERATE PROTEIN-CALORIE MALNUTRITION Status: Acute - Plan pt got hypotensive when he was gotten up and became tachycardiac. will hold coumadin given his low platelets. will continue prophylactic antibiotics. will add prn ensure 03/22 pt tolerating his oral intake. He has been up and felt well today. will continue to hold Coumadin. s/p one unit of blood and platelets. His counts are trending up. will continue abx for now. possible discharge in the next 24-48hr. 03/23 will give one liter of iv fluids and will given him iv digoxin and will check dig level. spoke with cardiology the next step will be to get a pacemaker. 03/24 pt states he feels much better today. I did get him up to ambulate he is unsteady and his heart rate went up to 150 rvr. I will get ep to see him. i did talk to him in detail on having a pacemaker however pt thinks his tachycardia is due to his chemo which is possible he wants to talk to oncology to see if they can decrease the dose. I also explained to the pt that if he becomes deconditioned he will not be a candidate for chemo especially since his taste is off and he does not have an appetite for food. will start him on megace and will discontinue his abx since his counts have improved. will continue to hold coumadin.
[2020-03-24] MEDS ORDERED: Aspirin 81 mg Enteric Coated Tablet PO SCH (18:30)
[2020-03-24] MEDS: Megestrol Acetate 40 MG TAB PO SCH (20:33)
[2020-03-24] MEDS: Atorvastatin Calcium 20 MG TAB PO SCH (20:33)
[2020-03-25 04:17] LABS: Anion Gap 12 mmol/L (10-20); BUN (Urea Nitrogen) 10 mg/dL (8.4-25.7); Calc. Creatinine Clearance 122 mL/min (70-130); Calcium 7.9 mg/dL (7.8-10.44); Carbon Dioxide 24 mmol/L (23-31); Chloride 105 mmol/L (98-107); Estimated GFR-MDRD Greater than 90; Glucose 107 mg/dL (83-110); Potassium 3.5 mmol/L (3.5-5.1); Sodium 137 mmol/L (136-145)
[2020-03-25 04:19] LABS: Digoxin 1.56 ng/mL (0.8-2.0)
[2020-03-25 04:50] LABS: Anisocytosis SLIGHT = 6-15 cells (100X) (0-5/hpf); Band 21 % (5-11); Eosinophils 2 % (0-10); Hemoglobin 8.9 g/dL (14.0-18.0); Lymphocytes 6 % (21-51); MDiff Complete? YES; Mean Corpuscular HGB CONC 35.9 g/dL (32.0-36.0); Mean Corpuscular Hemoglobin 36.6 pg (27.0-31.0); Mean Platelet Volume 10.3 fL (7.4-10.4); Monocytes 7 % (0-10); Neutrophil 64 % (42-75); Platelet Count 77 thou/uL (130-400); Platelet Morphology Comment Appears Decreased; RBC Distribution Width 16.3 % (11.5-14.5); Red Blood Cell (RBC) Count 2.42 mill/uL (4.70-6.10); White Blood Cell (WBC) Count 6.2 thou/uL (4.8-10.8)
[2020-03-25] MEDS ORDERED: Calcium Carbonate 500 MG ChewTAB PO PRN (07:40)
[2020-03-25] MEDS ORDERED: Cepastat Lozenges 1 LOZ PO PRN (07:40)
[2020-03-25] MEDS ORDERED: Diabetic Tussin 200 MG/10 ML UDCUP PO PRN (07:40)
[2020-03-25] MEDS ORDERED: Loperamide HCl 2 MG CAP PO PRN (07:40)
[2020-03-25] MEDS ORDERED: Ondansetron PF 4 MG/2 ML Vial IVP PRN (07:40)
[2020-03-25] MEDS ORDERED: Bisacodyl 5 MG TAB PO PRN (07:40)
[2020-03-25] MEDS ORDERED: Sodium Chloride 0.65% Nasal 44 ML BOT EA NARE PRN (07:40)
[2020-03-25] MEDS ORDERED: HYDROcodone/Acetaminophen 5/325 mg Tablet PO PRN (07:40)
[2020-03-25] MEDS ORDERED: Ondansetron ODT 4 MG TAB PO PRN (07:40)
[2020-03-25] MEDS ORDERED: Melatonin 3 MG TAB PO PRN (07:41)
[2020-03-25] MEDS: Megestrol Acetate 40 MG TAB PO SCH ×2 (10:01→20:12)
[2020-03-25] MEDS: Famotidine 20 MG TAB PO SCH ×2 (10:01→20:12)
[2020-03-25] MEDS: Aspirin 81 mg Enteric Coated Tablet PO SCH (10:01)
[2020-03-25] MEDS: Folic Acid 1 MG TAB PO SCH (10:02)
[2020-03-25] MEDS: Cyanocobalamin (Vitamin B-12) 1,000 MCG TAB PO SCH (10:02)
[2020-03-25] MEDS: Digoxin 0.125 MG TAB PO SCH (10:02)
[2020-03-25] MEDS: Multivitamin W/ Minerals 1 TAB PO SCH (10:02)
--- NOTE | 2020-03-25 11:50 | PDOC.HOSPP ---
- Subjective Encounter Date: 03/25/20 Encounter Time: 09:15 Subjective: Patient seen and examined. No new complaints. No overnight events, patient's is present bedside, whenever patient ambulates at the time his heart rate increases - Objective Vital Signs & Weight: Vital Signs (12 hours) Temp Pulse Resp BP BP Pulse Ox 03/25/20 11:43 98.0 F 73 19 127/70 98 03/25/20 10:02 75 03/25/20 07:41 98.2 F 75 17 114/58 L 97 03/25/20 03:36 98.4 F 79 18 131/63 97 03/25/20 00:00 77 Weight Weight 187 lb Most Recent Monitor Data NIBP 121/80 I&O: 03/24/20 03/25/20 03/26/20 06:59 06:59 06:59 Intake Total 480 Balance 480 Result Diagrams: 03/25/20 03:28 03/25/20 03:28 Radiology Reviewed by me: Yes EKG Reviewed by me: Yes Hospitalist ROS - Review of Systems Constitutional: reports: weakness. denies: fever, chills, sweats, malaise, other Respiratory: denies: cough, dry, shortness of breath, hemoptysis, SOB with excertion, pleuritic pain, sputum, wheezing, other Cardiovascular: denies: chest pain, palpitations, orthopnea, paroxysmal noc. dyspnea, edema, light headedness, other Gastrointestinal: denies: nausea, vomiting, abdominal pain, diarrhea, constipation, melena, hematochezia, other Genitourinary: denies: dysuria, frequency, incontinence, hematuria, retention, other Musculoskeletal: denies: neck pain, shoulder pain, arm pain, back pain, hand pain, leg pain, foot pain, other - Medication Medications: Active Medications Generic Name Dose Route Start Last Admin Trade Name Freq PRN Reason Stop Dose Admin Aspirin 81 mg 03/25/20 09:00 03/25/20 10:01 Aspirin 81 Mg Enteric Coated Tablet PO 81 mg DAILY VANIA Administration Atorvastatin Calcium 20 mg 03/21/20 21:00 03/24/20 20:33 Atorvastatin Calcium 20 Mg Tab PO 20 mg HS VANIA Administration Cyanocobalamin 1,000 mcg 03/25/20 09:00 03/25/20 10:02 Cyanocobalamin (Vitamin B-12) 1,000 Mcg Tab PO 1,000 mcg DAILY VANIA Administration Digoxin 0.125 mg 03/21/20 09:00 03/25/20 10:02 Digoxin 0.125 Mg Tab PO 0.125 mg DAILY VANIA Administration Diltiazem HCl 30 mg 03/23/20 18:00 03/25/20 11:40 Diltiazem Hcl 30 Mg Tablet PO 30 mg Q6HR VANIA Administration Famotidine 20 mg 03/25/20 09:00 03/25/20 10:01 Famotidine 20 Mg Tab PO 20 mg BID VANIA Administration Folic Acid 1 mg 03/25/20 09:00 03/25/20 10:02 Folic Acid 1 Mg Tab PO 1 mg DAILY VANIA Administration Iron/Minerals/Multivitamins 1 tab 03/25/20 09:00 03/25/20 10:02 Multivitamin W/ Minerals 1 Tab PO 1 tab DAILY VANIA Administration Megestrol Acetate 40 mg 03/24/20 21:00 03/25/20 10:01 Megestrol Acetate 40 Mg Tab PO 40 mg BID VANIA Administration Pantoprazole Sodium 40 mg 03/21/20 09:00 03/25/20 10:01 Pantoprazole 40 Mg Tab PO 40 mg DAILY VANIA Administration Sodium Chloride 10 ml 03/21/20 09:00 03/25/20 10:02 Flush - Normal Saline 10 Ml Syringe IVF 10 ml Q12HR VANIA Administration - Exam General Appearance: NAD, awake alert Eye: PERRL, anicteric sclera ENT: normocephalic atraumatic, no oropharyngeal lesions Neck: symmetric, no JVD, no thyromegaly Heart: RRR, no murmur, no gallops, no rubs Respiratory: no wheezes, no rales, no ronchi Gastrointestinal: soft, non-tender, non-distended, normal bowel sounds Extremities: no cyanosis, no clubbing, no edema Skin: normal turgor, no lesions Neurological: no focal deficits Musculoskeletal: normal tone, normal strength Psychiatric: normal affect, normal behavior Hosp A/P (1) Dizziness Code(s): R42 - DIZZINESS AND GIDDINESS Status: Acute Plan: Due to orthostatic hypotension (2) Neutropenia Code(s): D70.9 - NEUTROPENIA, UNSPECIFIED Status: Resolved (3) Protein-calorie malnutrition, moderate Code(s): E44.0 - MODERATE PROTEIN-CALORIE MALNUTRITION Status: Chronic (4) Afib Code(s): I48.91 - UNSPECIFIED ATRIAL FIBRILLATION Status: Acute Qualifiers: Atrial fibrillation type: paroxysmal Qualified Code(s): I48.0 - Paroxysmal atrial fibrillation (5) Anemia Code(s): D64.9 - ANEMIA, UNSPECIFIED Status: Chronic Qualifiers: Anemia type: unspecified type Qualified Code(s): D64.9 - Anemia, unspecified (6) Esophageal cancer Status: Chronic - Plan old records reviewed/req, plan discussed w/ family Plan Given patient gets recurrent paroxysmal A. fib with RVR with ambulation, will await electrophysiology evaluation before consider discharge, family member in agreement, they are concerned about going home with this condition. I have reviewed medication and continue provide symptomatic and supportive care, will ask cardiology to consider starting anticoagulation therapy
[2020-03-25] MEDS: Atorvastatin Calcium 20 MG TAB PO SCH (20:12)
[2020-03-26 04:43] LABS: #Lymphocytes 0.6 thou/uL (1.20-3.40); #Monocytes 0.6 thou/uL (0.11-0.59); #Neutrophils 5.2 thou/uL (1.40-6.50); %Basophils 0.1 % (0.0-1.0); %Eosinophils 0.7 % (0.0-10.0); %Lymphocytes 8.6 % (21.0-51.0); %Neutrophils 81.6 % (42.0-75.0); Hemoglobin 8.5 g/dL (14.0-18.0); INR-International Normal Ratio 1.3; Mean Corpuscular HGB CONC 34.5 g/dL (32.0-36.0); Mean Corpuscular Hemoglobin 35.2 pg (27.0-31.0); Mean Platelet Volume 9.9 fL (7.4-10.4); Platelet Count 83 thou/uL (130-400); Prothrombin Time 16.8 sec (12.0-14.7); Red Blood Cell (RBC) Count 2.42 mill/uL (4.70-6.10); White Blood Cell (WBC) Count 6.4 thou/uL (4.8-10.8)
[2020-03-26 04:59] LABS: Anion Gap 11 mmol/L (10-20); BUN (Urea Nitrogen) 8 mg/dL (8.4-25.7); Calc. Creatinine Clearance 135 mL/min (70-130); Calcium 8.3 mg/dL (7.8-10.44); Carbon Dioxide 27 mmol/L (23-31); Chloride 104 mmol/L (98-107); Estimated GFR-MDRD Greater than 90; Glucose 103 mg/dL (83-110); Potassium 3.3 mmol/L (3.5-5.1); Sodium 139 mmol/L (136-145)
[2020-03-26] MEDS ORDERED: Potassium Chloride 20 MEQ TAB PO SCH (07:45)
[2020-03-26] MEDS: Digoxin 0.125 MG TAB PO SCH (09:10)
[2020-03-26] MEDS: Aspirin 81 mg Enteric Coated Tablet PO SCH (09:11)
[2020-03-26] MEDS: Famotidine 20 MG TAB PO SCH ×2 (09:11→20:37)
[2020-03-26] MEDS: Multivitamin W/ Minerals 1 TAB PO SCH (09:11)
[2020-03-26] MEDS: Cyanocobalamin (Vitamin B-12) 1,000 MCG TAB PO SCH (09:11)
[2020-03-26] MEDS: Folic Acid 1 MG TAB PO SCH (09:12)
[2020-03-26] MEDS: Megestrol Acetate 40 MG TAB PO SCH ×2 (09:20→20:37)
--- NOTE | 2020-03-26 10:39 | PDOC.HOSPP ---
- Subjective Encounter Date: 03/26/20 Encounter Time: 09:30 Subjective: Patient seen and examined. No new complaints. No overnight events - Objective Vital Signs & Weight: Vital Signs (12 hours) Temp Pulse Resp BP Pulse Ox 03/26/20 09:10 110 H 03/26/20 06:55 97.7 F 110 H 18 129/76 97 03/26/20 04:00 98.7 F 85 16 119/71 97 03/25/20 23:51 83 Weight Weight 186 lb Most Recent Monitor Data NIBP 121/80 I&O: 03/25/20 03/26/20 03/27/20 06:59 06:59 06:59 Intake Total 480 1240 Output Total 1200 Balance 480 40 Result Diagrams: 03/26/20 04:21 03/26/20 04:21 EKG Reviewed by me: Yes Hospitalist ROS - Review of Systems ENT: denies: ear pain, ear discharge, nose pain, nose discharge, nose congestion, mouth pain, mouth swelling, throat pain, throat swelling, other Respiratory: denies: cough, dry, shortness of breath, hemoptysis, SOB with excertion, pleuritic pain, sputum, wheezing, other Cardiovascular: denies: chest pain, palpitations, orthopnea, paroxysmal noc. dyspnea, edema, light headedness, other Gastrointestinal: denies: nausea, vomiting, abdominal pain, diarrhea, constipation, melena, hematochezia, other Genitourinary: denies: dysuria, frequency, incontinence, hematuria, retention, other Musculoskeletal: denies: neck pain, shoulder pain, arm pain, back pain, hand pain, leg pain, foot pain, other - Medication Medications: Active Medications Generic Name Dose Route Start Last Admin Trade Name Paul PRN Reason Stop Dose Admin Aspirin 81 mg 03/25/20 09:00 03/26/20 09:11 Aspirin 81 Mg Enteric Coated Tablet PO 81 mg DAILY VANIA Administration Atorvastatin Calcium 20 mg 03/21/20 21:00 03/25/20 20:12 Atorvastatin Calcium 20 Mg Tab PO 20 mg HS VANAI Administration Cyanocobalamin 1,000 mcg 03/25/20 09:00 03/26/20 09:11 Cyanocobalamin (Vitamin B-12) 1,000 Mcg Tab PO 1,000 mcg DAILY VANIA Administration Digoxin 0.125 mg 03/21/20 09:00 03/26/20 09:10 Digoxin 0.125 Mg Tab PO 0.125 mg DAILY VANIA Administration Diltiazem HCl 30 mg 03/23/20 18:00 03/26/20 05:06 Diltiazem Hcl 30 Mg Tablet PO 30 mg Q6HR VANIA Administration Famotidine 20 mg 03/25/20 09:00 03/26/20 09:11 Famotidine 20 Mg Tab PO 20 mg BID VANIA Administration Folic Acid 1 mg 03/25/20 09:00 03/26/20 09:12 Folic Acid 1 Mg Tab PO 1 mg DAILY VANIA Administration Iron/Minerals/Multivitamins 1 tab 03/25/20 09:00 03/26/20 09:11 Multivitamin W/ Minerals 1 Tab PO 1 tab DAILY VANIA Administration Megestrol Acetate 40 mg 03/24/20 21:00 03/26/20 09:20 Megestrol Acetate 40 Mg Tab PO 40 mg BID VANIA Administration Pantoprazole Sodium 40 mg 03/21/20 09:00 03/26/20 09:11 Pantoprazole 40 Mg Tab PO 40 mg DAILY VANIA Administration Sodium Chloride 10 ml 03/21/20 09:00 03/25/20 20:12 Flush - Normal Saline 10 Ml Syringe IVF 10 ml Q12HR VANIA Administration - Exam General Appearance: NAD, awake alert Eye: PERRL, anicteric sclera ENT: normocephalic atraumatic, no oropharyngeal lesions Neck: supple, symmetric, no JVD Heart: no murmur, no gallops, no rubs, irregular Respiratory: no wheezes, no rales, no ronchi Gastrointestinal: soft, non-tender, non-distended, normal bowel sounds Extremities: no clubbing, no edema Skin: normal turgor, no lesions Neurological: no focal deficits Musculoskeletal: normal tone, normal strength Psychiatric: normal affect, normal behavior Hosp A/P (1) Dizziness Code(s): R42 - DIZZINESS AND GIDDINESS Status: Acute (2) Neutropenia Code(s): D70.9 - NEUTROPENIA, UNSPECIFIED Status: Resolved (3) Protein-calorie malnutrition, moderate Code(s): E44.0 - MODERATE PROTEIN-CALORIE MALNUTRITION Status: Chronic (4) Afib Code(s): I48.91 - UNSPECIFIED ATRIAL FIBRILLATION Status: Acute Qualifiers: Atrial fibrillation type: paroxysmal Qualified Code(s): I48.0 - Paroxysmal atrial fibrillation (5) Anemia Code(s): D64.9 - ANEMIA, UNSPECIFIED Status: Chronic Qualifiers: Anemia type: unspecified type Qualified Code(s): D64.9 - Anemia, unspecified (6) Esophageal cancer Status: Chronic (7) Hypokalemia Code(s): E87.6 - HYPOKALEMIA Status: Acute - Plan old records reviewed/req Plan Electrophysiologic evaluation is pending, Replace potassium Medication reviewed and continue provide symptomatic and supportive care Continue PT OT Expecting discharge soon if no plan for further procedure by EP
[2020-03-26] MEDS: Atorvastatin Calcium 20 MG TAB PO SCH (20:37)
[2020-03-27 02:26] LABS: INR-International Normal Ratio 1.2; Prothrombin Time 15.9 sec (12.0-14.7)
[2020-03-27 02:44] LABS: Anion Gap 11 mmol/L (10-20); BUN (Urea Nitrogen) 11 mg/dL (8.4-25.7); Calc. Creatinine Clearance 130 mL/min (70-130); Calcium 8.3 mg/dL (7.8-10.44); Carbon Dioxide 28 mmol/L (23-31); Chloride 104 mmol/L (98-107); Estimated GFR-MDRD Greater than 90; Glucose 109 mg/dL (83-110); Magnesium 1.2 mg/dL (1.6-2.6); Potassium 3.8 mmol/L (3.5-5.1); Sodium 139 mmol/L (136-145)
[2020-03-27] MEDS ORDERED: Magnesium Sulfate 4 GM in Sodium Chloride 0.9% 250 ML 250 ML IVPB SCH (08:00)
[2020-03-27] MEDS: Aspirin 81 mg Enteric Coated Tablet PO SCH (09:00)
[2020-03-27] MEDS: Cyanocobalamin (Vitamin B-12) 1,000 MCG TAB PO SCH (09:01)
[2020-03-27] MEDS: Digoxin 0.125 MG TAB PO SCH (09:01)
[2020-03-27] MEDS: Famotidine 20 MG TAB PO SCH (09:03)
[2020-03-27] MEDS: Megestrol Acetate 40 MG TAB PO SCH (09:04)
[2020-03-27] MEDS: Folic Acid 1 MG TAB PO SCH (09:04)
[2020-03-27] MEDS: Multivitamin W/ Minerals 1 TAB PO SCH (09:04)
--- NOTE | 2020-03-27 10:53 | PDOC.HOSPP ---
- Subjective Encounter Date: 03/27/20 Encounter Time: 08:50 Subjective: Patient seen and examined. No new complaints. No overnight events - Objective Vital Signs & Weight: Vital Signs (12 hours) Temp Pulse Resp BP BP BP BP 03/27/20 09:01 78 03/27/20 08:00 97.6 F 86 14 121/67 03/27/20 06:35 123/60 138/68 129/68 03/27/20 03:56 98.1 F 86 15 134/67 03/26/20 23:51 85 Pulse Ox 03/27/20 09:01 03/27/20 08:00 96 03/27/20 06:35 03/27/20 03:56 97 03/26/20 23:51 Weight Weight 185 lb Most Recent Monitor Data NIBP 121/80 I&O: 03/26/20 03/27/20 03/28/20 06:59 06:59 06:59 Intake Total 1240 597 Output Total 1200 Balance 40 597 Result Diagrams: 03/26/20 04:21 03/27/20 02:14 EKG Reviewed by me: Yes Hospitalist ROS - Review of Systems ENT: denies: ear pain, ear discharge, nose pain, nose discharge, nose congestion, mouth pain, mouth swelling, throat pain, throat swelling, other Respiratory: denies: cough, dry, shortness of breath, hemoptysis, SOB with excertion, pleuritic pain, sputum, wheezing, other Cardiovascular: denies: chest pain, palpitations, orthopnea, paroxysmal noc. dyspnea, edema, light headedness, other Gastrointestinal: denies: nausea, vomiting, abdominal pain, diarrhea, cons tipation, melena, hematochezia, other Genitourinary: denies: dysuria, frequency, incontinence, hematuria, retention, other Musculoskeletal: denies: neck pain, shoulder pain, arm pain, back pain, hand pain, leg pain, foot pain, other - Medication Medications: Active Medications Generic Name Dose Route Start Last Admin Trade Name Freq PRN Reason Stop Dose Admin Aspirin 81 mg 03/25/20 09:00 03/27/20 09:00 Aspirin 81 Mg Enteric Coated Tablet PO 81 mg DAILY VANIA Administration Atorvastatin Calcium 20 mg 03/21/20 21:00 03/26/20 20:37 Atorvastatin Calcium 20 Mg Tab PO 20 mg HS VANIA Administration Cyanocobalamin 1,000 mcg 03/25/20 09:00 03/27/20 09:01 Cyanocobalamin (Vitamin B-12) 1,000 Mcg Tab PO 1,000 mcg DAILY VANIA Administration Digoxin 0.125 mg 03/21/20 09:00 03/27/20 09:01 Digoxin 0.125 Mg Tab PO 0.125 mg DAILY VANIA Administration Diltiazem HCl 60 mg 03/26/20 18:00 03/27/20 06:07 Diltiazem Hcl 30 Mg Tablet PO 60 mg Q6HR VANIA Administration Famotidine 20 mg 03/25/20 09:00 03/27/20 09:03 Famotidine 20 Mg Tab PO 20 mg BID VANIA Administration Folic Acid 1 mg 03/25/20 09:00 03/27/20 09:04 Folic Acid 1 Mg Tab PO 1 mg DAILY VANIA Administration Magnesium Sulfate 4 gm/ Sodium 258 mls @ 86 mls/hr 03/27/20 08:00 03/27/20 09:41 Chloride IVPB 03/27/20 12:00 258 mls NOW VANIA Administration Iron/Minerals/Multivitamins 1 tab 03/25/20 09:00 03/27/20 09:04 Multivitamin W/ Minerals 1 Tab PO 1 tab DAILY VANIA Administration Megestrol Acetate 40 mg 03/24/20 21:00 03/27/20 09:04 Megestrol Acetate 40 Mg Tab PO 40 mg BID VANIA Administration Pantoprazole Sodium 40 mg 03/21/20 09:00 03/27/20 09:04 Pantoprazole 40 Mg Tab PO 40 mg DAILY VANIA Administration Sodium Chloride 10 ml 03/21/20 09:00 03/27/20 09:05 Flush - Normal Saline 10 Ml Syringe IVF 10 ml Q12HR VANIA Administration - Exam General Appearance: NAD, awake alert Eye: PERRL, anicteric sclera ENT: normocephalic atraumatic, no oropharyngeal lesions Neck: supple, symmetric, no JVD, no thyromegaly Heart: no murmur, no gallops, no rubs, irregular Respiratory: no wheezes, no rales, no ronchi Gastrointestinal: soft, non-tender, non-distended, normal bowel sounds, no palpable masses Extremities: no cyanosis, no clubbing, no edema Skin: normal turgor, no lesions Neurological: no focal deficits Musculoskeletal: normal tone, normal strength Psychiatric: normal affect, normal behavior Hosp A/P (1) Dizziness Code(s): R42 - DIZZINESS AND GIDDINESS Status: Acute (2) Neutropenia Code(s): D70.9 - NEUTROPENIA, UNSPECIFIED Status: Resolved (3) Protein-calorie malnutrition, moderate Code(s): E44.0 - MODERATE PROTEIN-CALORIE MALNUTRITION Status: Chronic (4) Afib Code(s): I48.91 - UNSPECIFIED ATRIAL FIBRILLATION Status: Acute Qualifiers: Atrial fibrillation type: paroxysmal Qualified Code(s): I48.0 - Paroxysmal atrial fibrillation (5) Anemia Code(s): D64.9 - ANEMIA, UNSPECIFIED Status: Chronic Qualifiers: Anemia type: unspecified type Qualified Code(s): D64.9 - Anemia, unsp ecified (6) Esophageal cancer Status: Chronic (7) Hypokalemia Code(s): E87.6 - HYPOKALEMIA Status: Acute (8) Hypomagnesemia Code(s): E83.42 - HYPOMAGNESEMIA Status: Acute - Plan old records reviewed/req Plan Today electrophysiology consultation, based on the recommendation will consider discharge plan Medications reviewed and continue provide symptomatic and supportive care, Expected discharge today if no further plan for any cardiac study Replace magnesium sulfate 4 g and repeat level at 2 PM
--- NOTE | 2020-03-27 10:57 | PDOC.DS.DS ---
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 This time in the emergency room patient was found with A. fib with RVR, his heart rate was 150 with profound hypotension, patient was given IV fluid and tachycardia improved. Patient also had neutropenia and oncology evaluated this patient and patient received Neupogen and after that his neutropenia resolved, patient also has chronic thrombocytopenia and macrocytic anemia. While in hospital we kept on hold Coumadin therapy but on discharge be resumed. While in hospital cardiology was following and they cleared him for discharge bu t before discharge when he was ambulating his heart rate was going up and he was getting paroxysmal RVR and that is why we consulted content designer for evaluation before discharge. Resuscitation Status: 03/20/20 12:09 Resuscitation Status Routine Resuscitation Status: FULL: Full Resuscitation - Labs Lab Results: 03/26/20 04:21 03/27/20 02:14 Abnormal Lab Results - Last 48 hrs 03/26/20 04:21: Potassium 3.3 L, BUN 8 L, Creatinine 0.60 L 03/26/20 04:21: RBC 2.42 L, Hgb 8.5 L, Hct 24.7 L, MCV 102.0 H, MCH 35.2 H, RDW 16.0 H, Plt Count 83 L, Neutrophils % 81.6 H, Lymphocytes % 8.6 L, Lymphocytes # 0.6 L, Monocytes # 0.6 H 03/26/20 04:21: PT 16.8 H 03/27/20 02:14: PT 15.9 H 03/27/20 02:14: Creatinine 0.62 L, Magnesium 1.2 L Microbiology - Entire Visit 03/20/20 10:30 Venous blood - Right Hand Blood Culture - Final NO GROWTH IN 5 DAYS 03/20/20 10:28 Venous blood - Left Hand Blood Culture - Final NO GROWTH IN 5 DAYS 03/21/20 00:50 Urine voided Urine Culture - Final NO GROWTH AT 36 HOURS - Diagnostic Interpretation Other Additional comments: Chest x-ray showed small right pleural effusion, no consolidation CT angiography showed no evidence of pulmonary embolism - Physical Exam Vitals: Vital Signs (12 hours) Temp Pulse Resp BP BP BP BP 03/27/20 09:01 78 03/27/20 08:00 97.6 F 86 14 121/67 03/27/20 06:35 123/60 138/68 129/68 03/27/20 03:56 98.1 F 86 15 134/67 03/26/20 23:51 85 Pulse Ox 03/27/20 09:01 03/27/20 08:00 96 03/27/20 06:35 03/27/20 03:56 97 03/26/20 23:51 Weight Weight 185 lb Most Recent Monitor Data NIBP 121/80 Physical Exam: The patient was seen and examined on the day of discharge. Please see my progress note from today for physical examination finding Problem - Problem (1) Dizziness Code(s): R42 - DIZZINESS AND GIDDINESS Status: Acute (2) Neutropenia Code(s): D70.9 - NEUTROPENIA, UNSPECIFIED Status: Resolved (3) Protein-calorie malnutrition, moderate Code(s): E44.0 - MODERATE PROTEIN-CALORIE MALNUTRITION Status: Chronic (4) Afib Code(s): I48.91 - UNSPECIFIED ATRIAL FIBRILLATION Status: Acute Qualifiers: Atrial fibrillation type: paroxysmal Qualified Code(s): I48.0 - Paroxysmal atrial fibrillation (5) Anemia Code(s): D64.9 - ANEMIA, UNSPECIFIED Status: Chronic Qualifiers: Anemia type: unspecified type Qualified Code(s): D64.9 - Anemia, unspecified (6) Esophageal cancer Status: Chronic (7) Hypokalemia Code(s): E87.6 - HYPOKALEMIA Status: Acute (8) Hypomagnesemia Code(s): E83.42 - HYPOMAGNESEMIA Status: Acute Plan - Discharge Medications Prescriptions: Diltiazem HCl [Cardizem] 60 mg PO Q6HR #120 tab Aspirin [Ecotrin Low Strength] 81 mg PO DAILY #30 tab Folic Acid [Folvite] 1 mg PO DAILY #30 tab Megestrol Acetate [Megace] 40 mg PO BID #60 tab Multivitamin W/ Minerals [Theragran M] 1 tab PO DAILY #30 tab Cyanocobalamin (Vitamin B-12) [Vitamin B-12] 1,000 mcg PO DAILY #30 tab Home Medications: Medication Instructions Recorded Confirmed Type Atorvastatin Calcium [Lipitor] 20 mg PO DAILY 03/17/20 03/21/20 History Digoxin [Lanoxin] 0.125 mg PO DAILY 03/17/20 03/21/20 History Omeprazole 20 mg PO DAILY 03/17/20 03/21/20 History Warfarin Sodium [Coumadin] 2 mg PO DAILY 03/17/20 03/21/20 History Multivit-Min/FA/Lycopen/Lutein 1 each PO DAILY 03/21/20 03/21/20 History [Centrum Silver Men Tablet] Aspirin [Ecotrin Low Strength] 81 mg PO DAILY #30 tab 03/27/20 Rx Cyanocobalamin (Vitamin B-12) 1,000 mcg PO DAILY #30 tab 03/27/20 Rx [Vitamin B-12] Diltiazem HCl [Cardizem] 60 mg PO Q6HR #120 tab 03/27/20 Rx Folic Acid [Folvite] 1 mg PO DAILY #30 tab 03/27/20 Rx Megestrol Acetate [Megace] 40 mg PO BID #60 tab 03/27/20 Rx Multivitamin W/ Minerals 1 tab PO DAILY #30 tab 03/27/20 Rx [Theragran M] Allergies: No Known Drug Allergies Allergy (Verified 03/21/20 01:27) - Discharge Instructions Activity:: Activity as Tolerated Nourishment:: Heart Healthy Diet Therapies:: Not Applicable Equipment/Supplies:: Not Applicable IV Therapy:: Not Applicable - Follow up Plan Referrals: Quinten Stoner MD [Primary Care Provider] - 7 Days (Please call the office to make an appointment.) Taco Ann MD [Active] - 2-3 Weeks (Please call the office to make an appointment.) Charly Carver MD [Clubhouse Attendant] - 2-3 Weeks (Please call the office to make an appointment.) Disposition: HOME Quality - Care Measures CORE MEASURES:: N/A - Stroke/TIA Did you prescribe anticoagulant for A Fib/Flutter?: Yes
--- NOTE | 2020-03-27 14:05 | PRG ---
DATE OF SERVICE: 03/27/2020 SUBJECTIVE: Mr. Arreguin feels better overall. He . His heart rate does increase with ambulation. He has been given low-dose calcium channel elizabeth over the weekend. OBJECTIVE: GENERAL: Patient is a pleasant male who is in no acute distress. The patient appears their stated age. VITAL SIGNS: Blood pressure 115/70, pulse 92, respirations 20, supine blood pressure 129, standing blood pressure 138. NEUROLOGIC: The patient is alert and oriented x3 with no focal neurologic deficits. HEENT: Sclerae without icterus. Mouth has moist mucous membranes with normal pallor. NECK: No JVD. Carotid upstroke brisk. No bruits bilaterally. LUNGS: Clear to auscultation with unlabored respirations. BACK: No scoliosis or kyphosis. CARDIAC: Irregularly irregular. ABDOMEN: Soft, nontender, nondistended. No peritoneal signs present. No hepatosplenomegaly. No abnormal striae. EXTREMITIES: 2+ femoral and 2+ dorsalis pedis pulses. No cyanosis, clubbing, or edema. SKIN: No gross abnormalities. PERTINENT LABORATORY DATA: Hemoglobin 8.5, hematocrit 24.3, and platelet count 83,000. IMPRESSION: 1. Orthostatic hypotension. 2. Chronic atrial fibrillation. 3. Thrombocytopenia. RECOMMENDATIONS: 1. Okay to restart Coumadin. 2. We will consult with EP to discuss options for increased heart rate with ambulation. We will consider AV cuauhtemoc ablation with pacemaker implantation. Given difficulty on increasing beta blockade or calcium channel blockade due to hypotension. Job ID: [id number]
[2020-03-27 15:20] VITALS: BP 133/66; TEMP 97.6
--- NOTE | 2020-03-28 08:20 | CON ---
DATE OF CONSULTATION: 03/27/2020 Dictated by Minnie Leal, nurse practitioner, as a scribe for Dr. Charly Carver. TIME OF CONSULTATION: 2 p.m. REASON FOR CONSULTATION: Atrial fibrillation with RVR. HISTORY OF PRESENT ILLNESS: Mr. Arreguin is a pleasant 69-year-old gentleman who comes into the hospital with dizziness and found to be in atrial fibrillation with RVR. His problem list is as follows: 1. Dizziness with near syncope and weakness. 2. Atrial fibrillation with RVR. a. Chronic atrial fibrillation x15 years. b. Chronic oral anticoagulation on warfarin. 3. Pancytopenia. a. Status post 1 unit of PRBCs and platelets on 03/21. 4. Esophageal cancer, adenocarcinoma with lung nodule, HER2 positive. 5. Hypomagnesemia. 6. Hypokalemia. Mr. Arreguin is undergoing chemotherapy for his esophageal cancer and recently started a new treatment regimen. He was experiencing dizziness and near-syncope and presented to the emergency room. He was found to be in atrial fibrillation, which is a chronic issue for him, but with rapid ventricular rates up to 150 beats per minute. He was also found to be pancytopenic with WBCs 0.5, hemoglobin 7.1, and platelet count of 16. He was given a transfusion, and Cardiology has been working to rate control his atrial fibrillation. There has been some difficulty with hypotension and EP consultation has been requested for arrhythmia management moving forward. Mr. Arreguin currently feels well. He does endorse occasional weakness and dizziness, but reports that he usually does not struggle with rapid ventricular rates that he is aware of on his home regimen of digoxin daily. He is eager to go home. REVIEW OF SYSTEMS: A 12-point review of systems is negative except that listed above in HPI. PAST MEDICAL HISTORY: 1. Chronic atrial fibrillation. 2. Esophageal cancer and as per problem list above. SOCIAL HISTORY: Remote smoker, 1 to 2 packs a day and drinks occasionally without excess. No recreational drug use. He lives with his and is a full code. FAMILY HISTORY: Negative for sudden cardiac . HOME MEDICATIONS: Include: 1. Digoxin. 2. Warfarin. 3. Carboplatin and Taxol. ALLERGIES: NO KNOWN DRUG ALLERGIES. OBJECTIVE: VITAL SIGNS: Temperature 97.6, pulse 85, blood pressure 133/66, respirations 14, and oxygen 97% on room air. GENERAL: The patient is alert, oriented. Speech is clear. Affect is appropriate. He is a good historian. He is in no apparent distress, resting comfortably in bed at the time of the exam. HEENT: He is normocephalic and atraumatic. His sclerae are anicteric. EOMs are intact. Oral mucosa is moist and pink with adequate dentition. NECK: Supple without jugular venous distention. There is no lymphadenopathy, and trachea is midline. LUNGS: Clear to auscultation bilaterally without wheezes, crackles, or rhonchi. HEART: Rate is irregularly irregular with controlled ventricular rate. PMI is nondisplaced. ABDOMEN: Obese, soft, nontender without palpable masses. Hepatojugular reflux is negative. NEUROLOGIC: Grossly intact and nonfocal. Gait was not assessed. DATABASE: LABORATORY DATA: WBC 6.4, hemoglobin 8.5, platelet count is 83. Chemistry; 3.8 potassium, creatinine 0.62, magnesium 1.2 given supplementation, rechecked at 1.8. TSH is 1.8. No echocardiogram. Telemetry and EKG show atrial fibrillation occasionally with RVR, slight increases with activity, but largely rate controlled between 70 and 90 beats per minute. IMPRESSION: 1. Atrial fibrillation with rapid ventricular response in the setting of anemia and dehydration. 2. Pancytopenia, resolved. 3. Esophageal adenocarcinoma, managed by Dr. Staples. 4. Hypomagnesemia, corrected. PLAN AND RECOMMENDATIONS: I had a discussion today with Mr. Arreguin about atrial fibrillation and treatment options including ongoing rate control versus AV cuauhtemoc ablation with pacemaker implant. At this point, his blood pressures are stable on his current rate control regimen of digoxin 125 mcg daily with diltiazem 60 mg q.i.d. In light of his ongoing chemotherapy and suppressed immune system, I would refrain from pacemaker implant until his chemotherapy is complete unless unable to adequately rate control or he becomes severely symptomatic or there are medical concerns with his ongoing RVR. If further increase of his rate control medications are required, we could further titrate up his digoxin to 250 mcg daily without further lowering his blood pressure which is stable at this time. If a pacemaker is required and continues to be significant concern for his infectious risk, consideration for a Micra implant is not unreasonable. He requires ongoing oral anticoagulation. Per Oncology, he is cleared to resume warfarin when his platelet count is greater than 50. It was 83 this morning and warfarin should be resumed based on their recommendations for long-term oral anticoagulation, stroke prophylaxis with his atrial fibrillation. We will see him back in 6 weeks to reassess, see how he is doing. Thank you for allowing me to participate in the care of this patient. From Electrophysiology perspective, he may discharge from my perspective. Job ID: [id number]
== END 2020-03-27 16:10 | disposition home or self-care (01) | DRG 308 ==
LOC: ERS 09:42 → ERHOLD 17:25 → 2NO 22:42 → ERHOLD 03-21 00:07 → 2NO 03-21 00:59
PROVIDERS: ADMIT Internal Medicine; ATTEND Internal Medicine
DX: I48.0 Paroxysmal atrial fibrillation (principal); D61.810 Antineoplastic chemotherapy induced pancytopenia; C16.0 Malignant neoplasm of cardia; C78.00 Secondary malignant neoplasm of unspecified lung; E44.0 Moderate protein-calorie malnutrition; Z20.828 Contact with and (suspected) exposure to other viral communicable diseases; E78.5 Hyperlipidemia, unspecified; I95.1 Orthostatic hypotension; D63.0 Anemia in neoplastic disease; T45.1X5A Adverse effect of antineoplastic and immunosuppressive drugs, initial encounter; E87.6 Hypokalemia; E83.42 Hypomagnesemia; Z23 Encounter for immunization; Z79.02 Long term (current) use of antithrombotics/antiplatelets; Z68.23 Body mass index [BMI] 23.0-23.9, adult
CPT/HCPCS: 36415; 36430; 71045; 71275; 80048; 80053; 80162; 81003; 82274; 82533; 83605; 83735; 83880; 84443; 84484; 85014; 85018; 85025; 85049; 85610; 85730; 86850; 86900; 86901; 87040; 87086; 87635; 90471; 90662; 90732; 93005; 96365; 96366; 96367; 96374; G0008; G0009; G0378; J0692; J1160; J1642; J1940; J3370; J3475; J3490; J7030; J7050; P9016; P9035; Q9967; S0179; U0002; U0003

== ENCOUNTER 2022-01-16 16:10 | Inpatient (IN) | payer MEDICARE ==
[2022-01-16] MEDS ORDERED: Metoprolol Tartrate 5 MG/5 ML VIAL ONE ×2 (16:49→19:31)
[2022-01-16 17:15] LABS: Hemoglobin 12.9 g/dL (14.0-18.0); Mean Corpuscular HGB CONC 34.7 g/dL (32.0-36.0); Mean Corpuscular Hemoglobin 34.2 pg (27.0-31.0); Mean Corpuscular Volume 98.8 fL (78.0-98.0); Mean Platelet Volume 8.2 fL (7.4-10.4); Platelet Count 241 thou/uL (130-400); RBC Distribution Width 14.7 % (11.5-14.5); Red Blood Cell (RBC) Count 3.76 mill/uL (4.70-6.10); White Blood Cell (WBC) Count 8.4 thou/uL (4.8-10.8)
[2022-01-16 17:31] LABS: ALT (SGPT) 16 U/L (8-55); AST (SGOT) 27 U/L (5-34); Albumin 3.6 g/dL (3.4-4.8); Alkaline Phosphatase 69 U/L (40-110); Anion Gap 18 mmol/L (10-20); BUN (Urea Nitrogen) 11 mg/dL (8.4-25.7); Calc. Creatinine Clearance 0 mL/min (70-130); Calcium 9.2 mg/dL (7.8-10.44); Carbon Dioxide 22 mmol/L (23-31); Chloride 100 mmol/L (98-107); Estimated GFR 78; Globulin 3.5 g/dL (2.4-3.5); Glucose 171 mg/dL (83-110); Potassium 3.8 mmol/L (3.5-5.1); Protein, Total 7.1 g/dL (5.8-8.1); Sodium 136 mmol/L (136-145)
[2022-01-16 17:39] LABS: Band 33 % (5-11); Lymphocytes 4 % (21-51); MDiff Complete? YES; Monocytes 5 % (0-10); Neutrophil 55 % (42-75); Nucleated RBC 1 % (0); Platelet Morphology Comment Appears Adequate; Polychromasia MODERATE = 3-4 cells (100X) (0-2/hpf); Reactive Lymphocytes 3 % (0-10); Tear Drops SLIGHT = 2-5 cells (100X) (0-1/hpf)
[2022-01-16 18:26] LABS: INR-International Normal Ratio 3.2; Prothrombin Time 33.4 sec (12.0-14.7)
[2022-01-16 18:27] LABS: PTT 40.7 sec (22.9-36.1)
[2022-01-16 19:31] LABS: Bilirubin Negative (Negative); Blood, Urine Negative (Negative); Clarity Clear (Clear); Glucose, Urine (Dipstick) Normal (Negative); Ketone, Urine Negative (Negative); Leukocyte Negative Leu/uL (Negative); Nitrite Negative (Negative); Protein, Urine (Dipstick) Negative (Neg-Trace); Specific Gravity, Urine 1.015 (1.002-1.036); Urobilinogen Normal mg/dL (Less than 2); pH, Urine 6.5 (5.0-9.0)
[2022-01-16 20:17] LABS: Lactic Acid 1.6 mmol/L (0.5-2.2)
[2022-01-16] MEDS ORDERED: Bisacodyl 5 MG TAB PO PRN (21:21)
[2022-01-16] MEDS ORDERED: Zolpidem Tartrate 5 MG TAB PO PRN (21:21)
[2022-01-16] MEDS ORDERED: Ondansetron PF 4 MG/2 ML Vial IVP PRN (21:21)
[2022-01-16] MEDS ORDERED: Morphine 2 MG/ML VIAL SLOW IVP PRN (21:24)
[2022-01-16] MEDS ORDERED: Labetalol HCl 100 MG/20 ML VIAL SLOW IVP PRN (21:24)
[2022-01-16 21:58] LABS: Digoxin 0.68 ng/mL (0.8-2.0)
[2022-01-16 21:59] LABS: Troponin I 0.038 ng/mL (< 0.028)
[2022-01-16] MEDS: Sodium Chloride 0.9% 1,000 ML IV SCH (23:57)
[2022-01-16] MEDS: Digoxin 0.5 MG/2 ML AMP SLOW IVP SCH (23:57)
[2022-01-17 00:05] VITALS: BMI 23.2
[2022-01-17] MEDS ORDERED: Vancomycin 1.5 GRAM/300 ML BAG 1.5 GM in Premix Bag 1 BAG IVPB SCH (01:00)
[2022-01-17 01:07] LABS: Troponin I 0.039 ng/mL (< 0.028)
[2022-01-17 04:52] LABS: INR-International Normal Ratio 2.9; Prothrombin Time 30.7 sec (12.0-14.7)
[2022-01-17 05:03] LABS: Anion Gap 17 mmol/L (10-20); BUN (Urea Nitrogen) 10 mg/dL (8.4-25.7); Calc. Creatinine Clearance 95 mL/min (70-130); Calcium 8.6 mg/dL (7.8-10.44); Carbon Dioxide 21 mmol/L (23-31); Chloride 102 mmol/L (98-107); Estimated GFR 94; Glucose 112 mg/dL (83-110); Potassium 3.7 mmol/L (3.5-5.1); Sodium 136 mmol/L (136-145)
[2022-01-17 05:19] LABS: Hemoglobin 12.7 g/dL (14.0-18.0); Mean Corpuscular HGB CONC 32.8 g/dL (32.0-36.0); Mean Corpuscular Hemoglobin 33.2 pg (27.0-31.0); Mean Platelet Volume 8.1 fL (7.4-10.4); Platelet Count 221 thou/uL (130-400); RBC Distribution Width 15.2 % (11.5-14.5); Red Blood Cell (RBC) Count 3.81 mill/uL (4.70-6.10); White Blood Cell (WBC) Count 7.5 thou/uL (4.8-10.8)
[2022-01-17 05:20] LABS: Band 17 % (5-11); Lymphocytes 3 % (21-51); MDiff Complete? YES; Monocytes 9 % (0-10); Myelocyte 1 % (0-0); Neutrophil 70 % (42-75)
[2022-01-17] MEDS: Digoxin 0.5 MG/2 ML AMP SLOW IVP SCH ×2 (05:57→12:47)
[2022-01-17] MEDS ORDERED: Cefepime 1 GM in Sodium Chloride 0.9% 100 ML IVPB SCH (09:00)
[2022-01-17] MEDS ORDERED: Metoprolol Tartrate 25 MG TAB PO SCH (09:00)
[2022-01-17] MEDS ORDERED: Digoxin 0.125 MG TAB PO SCH (09:00)
[2022-01-17] MEDS ORDERED: Acetaminophen 325 MG TAB PO PRN (09:49)
[2022-01-17] MEDS ORDERED: Acetaminophen 650 MG Suppository PR PRN (09:49)
[2022-01-17] MEDS: Cholecalciferol 1,000 UNITS (25 MCG) TAB PO SCH (10:01)
[2022-01-17] MEDS: Folic Acid 1 MG TAB PO SCH (10:01)
[2022-01-17] MEDS: Multivit, Therapeutic 1 TAB PO SCH (10:02)
[2022-01-17] MEDS: Cyanocobalamin (Vitamin B-12) 1,000 MCG TAB PO SCH (10:02)
[2022-01-17] MEDS: pyridOXINE 50 MG (B6) TAB PO SCH (10:02)
[2022-01-17] MEDS: Cefepime 2 GM in Sodium Chloride 0.9% 100 ML IVPB SCH ×2 (10:07→23:55)
[2022-01-17] MEDS: Vancomycin 1 GM in Premix Bag 1 BAG IVPB SCH (12:58)
[2022-01-17] MEDS: Warfarin Sodium 1.5 MG TAB PO SCH (19:17)
[2022-01-17] MEDS: Zolpidem Tartrate 5 MG TAB PO PRN (20:50)
[2022-01-17] MEDS: Sodium Chloride 0.9% 1,000 ML IV SCH (20:57)
[2022-01-17] MEDS ORDERED: Warfarin Sodium 1 MG TAB PO SCH (21:00)
[2022-01-17] MEDS ORDERED: Atorvastatin Calcium 20 MG TAB PO SCH (21:00)
[2022-01-17] MEDS: NIRMATRELVIR 150 MG/RITONAVIR 100 MG TABLET PO SCH (21:01)
[2022-01-18] MEDS: Vancomycin 1 GM in Premix Bag 1 BAG IVPB SCH (00:08)
[2022-01-18 04:37] LABS: Hemoglobin 11.5 g/dL (14.0-18.0); INR-International Normal Ratio 2.8; Mean Corpuscular HGB CONC 34.5 g/dL (32.0-36.0); Mean Corpuscular Hemoglobin 34.4 pg (27.0-31.0); Mean Corpuscular Volume 99.8 fL (78.0-98.0); Mean Platelet Volume 8.6 fL (7.4-10.4); Platelet Count 221 thou/uL (130-400); Prothrombin Time 30.4 sec (12.0-14.7); RBC Distribution Width 15.1 % (11.5-14.5); Red Blood Cell (RBC) Count 3.33 mill/uL (4.70-6.10); White Blood Cell (WBC) Count 8.2 thou/uL (4.8-10.8)
[2022-01-18 04:55] LABS: ALT (SGPT) 18 U/L (8-55); AST (SGOT) 41 U/L (5-34); Albumin 2.7 g/dL (3.4-4.8); Alkaline Phosphatase 51 U/L (40-110); Anion Gap 13 mmol/L (10-20); BUN (Urea Nitrogen) 11 mg/dL (8.4-25.7); Bilirubin, Total 0.7 mg/dL (0.2-1.2); Calc. Creatinine Clearance 95 mL/min (70-130); Calcium 8.2 mg/dL (7.8-10.44); Carbon Dioxide 22 mmol/L (23-31); Chloride 100 mmol/L (98-107); Estimated GFR 94; Globulin 3.1 g/dL (2.4-3.5); Glucose 126 mg/dL (83-110); Magnesium 1.5 mg/dL (1.6-2.6); Phosphorus 2.5 mg/dL (2.3-4.7); Potassium 3.6 mmol/L (3.5-5.1); Protein, Total 5.8 g/dL (5.8-8.1); Sodium 131 mmol/L (136-145)
[2022-01-18 05:27] LABS: Anisocytosis SLIGHT = 6-15 cells (100X) (0-5/hpf); Band 10 % (5-11); Eosinophils 1 % (0-10); Lymphocytes 5 % (21-51); MDiff Complete? YES; Macrocytosis SLIGHT = 6-15 cells (100X) (0-5/hpf); Metamyelocyte 1 % (0-0); Monocytes 5 % (0-10); Neutrophil 78 % (42-75); Ovalocytes SLIGHT = 2-5 cells (100X) (0-1/hpf); Platelet Morphology Comment Appears Adequate
[2022-01-18] MEDS: Cholecalciferol 1,000 UNITS (25 MCG) TAB PO SCH (09:39)
[2022-01-18] MEDS: pyridOXINE 50 MG (B6) TAB PO SCH (09:39)
[2022-01-18] MEDS: Digoxin 0.125 MG TAB PO SCH (09:39)
[2022-01-18] MEDS: Multivit, Therapeutic 1 TAB PO SCH (09:40)
[2022-01-18] MEDS: NIRMATRELVIR 150 MG/RITONAVIR 100 MG TABLET PO SCH ×2 (09:40→21:21)
[2022-01-18] MEDS: Cyanocobalamin (Vitamin B-12) 1,000 MCG TAB PO SCH (09:40)
[2022-01-18] MEDS: Folic Acid 1 MG TAB PO SCH (09:40)
[2022-01-18] MEDS ORDERED: Magnesium Sulfate In Water 4 GM in Premix Bag 1 BAG IVPB SCH (10:30)
[2022-01-18] MEDS ORDERED: Electrolyte Replacement Protocol 1 EACH FS SCH (10:30)
[2022-01-18] MEDS ORDERED: Magnesium Sulfate 4 GM in Sodium Chloride 0.9% 250 ML 250 ML IVPB SCH (10:30)
[2022-01-18] MEDS: Cefepime 2 GM in Sodium Chloride 0.9% 100 ML IVPB SCH ×2 (12:11→23:13)
[2022-01-18 12:42] LABS: Vancomycin, Trough 12.9 ug/mL
[2022-01-18] MEDS: VANCOMYCIN 1.25 GM/250 ML BAG 1.25 GM in Premix Bag 1 BAG IVPB SCH (14:05)
[2022-01-18] MEDS: Warfarin Sodium 1.5 MG TAB PO SCH (18:15)
[2022-01-18] MEDS: Sodium Chloride 0.9% 1,000 ML IV SCH (18:16)
[2022-01-18] MEDS: Zolpidem Tartrate 5 MG TAB PO PRN (21:21)
[2022-01-19] MEDS: VANCOMYCIN 1.25 GM/250 ML BAG 1.25 GM in Premix Bag 1 BAG IVPB SCH (03:07)
[2022-01-19 04:57] LABS: INR-International Normal Ratio 2.8
[2022-01-19 05:16] LABS: ALT (SGPT) 20 U/L (8-55); AST (SGOT) 31 U/L (5-34); Albumin 2.7 g/dL (3.4-4.8); Alkaline Phosphatase 45 U/L (40-110); Anion Gap 13 mmol/L (10-20); BUN (Urea Nitrogen) 10 mg/dL (8.4-25.7); Bilirubin, Total 0.8 mg/dL (0.2-1.2); Calc. Creatinine Clearance 109 mL/min (70-130); Calcium 7.9 mg/dL (7.8-10.44); Carbon Dioxide 23 mmol/L (23-31); Chloride 102 mmol/L (98-107); Estimated GFR 98; Globulin 2.6 g/dL (2.4-3.5); Glucose 93 mg/dL (83-110); Magnesium 1.7 mg/dL (1.6-2.6); Potassium 3.1 mmol/L (3.5-5.1); Protein, Total 5.3 g/dL (5.8-8.1); Sodium 135 mmol/L (136-145)
[2022-01-19 05:34] LABS: Band 5 % (5-11); Hemoglobin 11.3 g/dL (14.0-18.0); Hypochromia SLIGHT = 6-15 cells (100X) (0-5/hpf); MDiff Complete? YES; Mean Corpuscular HGB CONC 34.5 g/dL (32.0-36.0); Mean Corpuscular Hemoglobin 34.2 pg (27.0-31.0); Mean Corpuscular Volume 99.2 fL (78.0-98.0); Mean Platelet Volume 7.7 fL (7.4-10.4); Monocytes 11 % (0-10); Neutrophil 84 % (42-75); Platelet Count 237 thou/uL (130-400); Platelet Morphology Comment Appears Adequate; Red Blood Cell (RBC) Count 3.31 mill/uL (4.70-6.10); White Blood Cell (WBC) Count 5.4 thou/uL (4.8-10.8)
[2022-01-19] MEDS ORDERED: Electrolyte Replacement Protocol FS PRN (09:45)
[2022-01-19] MEDS ORDERED: Magnesium 2 GM/50 ML(in water) 2 GM in Premix Bag 1 BAG IVPB SCH (10:00)
[2022-01-19] MEDS: Digoxin 0.125 MG TAB PO SCH (10:22)
[2022-01-19] MEDS: Folic Acid 1 MG TAB PO SCH (10:23)
[2022-01-19] MEDS: NIRMATRELVIR 150 MG/RITONAVIR 100 MG TABLET PO SCH ×2 (10:23→21:31)
[2022-01-19] MEDS: Multivit, Therapeutic 1 TAB PO SCH (10:23)
[2022-01-19] MEDS: Cyanocobalamin (Vitamin B-12) 1,000 MCG TAB PO SCH (10:23)
[2022-01-19] MEDS: Cholecalciferol 1,000 UNITS (25 MCG) TAB PO SCH (10:23)
[2022-01-19] MEDS: pyridOXINE 50 MG (B6) TAB PO SCH (10:23)
[2022-01-19] MEDS ORDERED: Potassium Chloride 20 MEQ TAB PO SCH (12:00)
[2022-01-19] MEDS: Gabapentin 300 MG CAP PO SCH ×2 (13:58→21:30)
[2022-01-19] MEDS: Warfarin Sodium 1.5 MG TAB PO SCH (18:10)
[2022-01-19] MEDS: Zolpidem Tartrate 5 MG TAB PO PRN (21:30)
[2022-01-19] MEDS: Sodium Chloride 0.9% 1,000 ML IV SCH (21:31)
[2022-01-20 04:55] LABS: INR-International Normal Ratio 3.4; Prothrombin Time 35.5 sec (12.0-14.7)
[2022-01-20 05:07] LABS: ALT (SGPT) 25 U/L (8-55); AST (SGOT) 34 U/L (5-34); Albumin 2.8 g/dL (3.4-4.8); Alkaline Phosphatase 45 U/L (40-110); Anion Gap 13 mmol/L (10-20); BUN (Urea Nitrogen) 9 mg/dL (8.4-25.7); Bilirubin, Total 0.6 mg/dL (0.2-1.2); Calc. Creatinine Clearance 102 mL/min (70-130); Calcium 7.8 mg/dL (7.8-10.44); Carbon Dioxide 23 mmol/L (23-31); Chloride 105 mmol/L (98-107); Estimated GFR 96; Globulin 2.6 g/dL (2.4-3.5); Glucose 84 mg/dL (83-110); Potassium 3.3 mmol/L (3.5-5.1); Protein, Total 5.4 g/dL (5.8-8.1); Sodium 138 mmol/L (136-145)
[2022-01-20] MEDS: NIRMATRELVIR 150 MG/RITONAVIR 100 MG TABLET PO SCH ×2 (09:41→21:07)
[2022-01-20] MEDS: Digoxin 0.125 MG TAB PO SCH (09:41)
[2022-01-20] MEDS: Gabapentin 300 MG CAP PO SCH ×3 (09:42→21:07)
[2022-01-20] MEDS: Multivit, Therapeutic 1 TAB PO SCH (09:42)
[2022-01-20] MEDS: Cyanocobalamin (Vitamin B-12) 1,000 MCG TAB PO SCH (09:42)
[2022-01-20] MEDS: pyridOXINE 50 MG (B6) TAB PO SCH (09:42)
[2022-01-20] MEDS: Folic Acid 1 MG TAB PO SCH (09:42)
[2022-01-20] MEDS: Cholecalciferol 1,000 UNITS (25 MCG) TAB PO SCH (09:42)
[2022-01-20] MEDS ORDERED: Potassium Chloride 20 MEQ TAB PO SCH (13:30)
[2022-01-20] MEDS ORDERED: Warfarin Sodium 1 MG TAB PO SCH (17:00)
[2022-01-20] MEDS: Sodium Chloride 0.9% 1,000 ML IV SCH (21:07)
[2022-01-20] MEDS: Zolpidem Tartrate 5 MG TAB PO PRN (21:09)
[2022-01-21 05:18] LABS: INR-International Normal Ratio 3.5; Prothrombin Time 35.8 sec (12.0-14.7)
[2022-01-21 08:12] LABS: Anion Gap 15 mmol/L (10-20); BUN (Urea Nitrogen) 6 mg/dL (8.4-25.7); Calc. Creatinine Clearance 117 mL/min (70-130); Carbon Dioxide 23 mmol/L (23-31); Chloride 106 mmol/L (98-107); Estimated GFR 100; Glucose 96 mg/dL (83-110); Potassium 3.6 mmol/L (3.5-5.1); Sodium 140 mmol/L (136-145)
[2022-01-21] MEDS: pyridOXINE 50 MG (B6) TAB PO SCH (10:08)
[2022-01-21] MEDS: Cholecalciferol 1,000 UNITS (25 MCG) TAB PO SCH (10:08)
[2022-01-21] MEDS: Gabapentin 300 MG CAP PO SCH ×3 (10:09→21:22)
[2022-01-21] MEDS: Cyanocobalamin (Vitamin B-12) 1,000 MCG TAB PO SCH (10:09)
[2022-01-21] MEDS: Digoxin 0.125 MG TAB PO SCH (10:09)
[2022-01-21] MEDS: Multivit, Therapeutic 1 TAB PO SCH (10:09)
[2022-01-21] MEDS: Folic Acid 1 MG TAB PO SCH (10:09)
[2022-01-21] MEDS: NIRMATRELVIR 150 MG/RITONAVIR 100 MG TABLET PO SCH ×2 (12:52→21:23)
[2022-01-21] MEDS: Sodium Chloride 0.9% 1,000 ML IV SCH (14:50)
[2022-01-21] MEDS: Zolpidem Tartrate 5 MG TAB PO PRN (21:23)
[2022-01-22 04:46] LABS: INR-International Normal Ratio 3.2; Prothrombin Time 33.5 sec (12.0-14.7)
[2022-01-22] MEDS: Folic Acid 1 MG TAB PO SCH (08:18)
[2022-01-22] MEDS: Gabapentin 300 MG CAP PO SCH (08:18)
[2022-01-22] MEDS: Cholecalciferol 1,000 UNITS (25 MCG) TAB PO SCH (08:18)
[2022-01-22] MEDS: Digoxin 0.125 MG TAB PO SCH (08:18)
[2022-01-22] MEDS: Multivit, Therapeutic 1 TAB PO SCH (08:18)
[2022-01-22] MEDS: Cyanocobalamin (Vitamin B-12) 1,000 MCG TAB PO SCH (08:18)
[2022-01-22] MEDS: NIRMATRELVIR 150 MG/RITONAVIR 100 MG TABLET PO SCH (08:19)
[2022-01-22] MEDS: pyridOXINE 50 MG (B6) TAB PO SCH (08:19)
[2022-01-22 08:49] LABS: #Eosinphils 0.1 thou/uL (0.0-0.7); #Lymphocytes 0.5 thou/uL (1.20-3.40); #Monocytes 0.4 thou/uL (0.11-0.59); #Neutrophils 4.6 thou/uL (1.40-6.50); %Basophils 0.3 % (0.0-1.0); %Eosinophils 1.9 % (0.0-10.0); %Lymphocytes 8.4 % (21.0-51.0); %Monocytes 6.5 % (0.0-10.0); %Neutrophils 82.9 % (42.0-75.0); Hemoglobin 10.7 g/dL (14.0-18.0); Mean Corpuscular HGB CONC 33.7 g/dL (32.0-36.0); Mean Corpuscular Hemoglobin 33.4 pg (27.0-31.0); Mean Corpuscular Volume 99.1 fL (78.0-98.0); Mean Platelet Volume 7.3 fL (7.4-10.4); Platelet Count 278 thou/uL (130-400); RBC Distribution Width 15.2 % (11.5-14.5); Red Blood Cell (RBC) Count 3.19 mill/uL (4.70-6.10); White Blood Cell (WBC) Count 5.5 thou/uL (4.8-10.8)
[2022-01-22 09:00] LABS: INR-International Normal Ratio 3.3; Prothrombin Time 34.5 sec (12.0-14.7)
[2022-01-22 09:12] LABS: Anion Gap 13 mmol/L (10-20); BUN (Urea Nitrogen) 8 mg/dL (8.4-25.7); Calc. Creatinine Clearance 119 mL/min (70-130); Calcium 8.3 mg/dL (7.8-10.44); Carbon Dioxide 24 mmol/L (23-31); Chloride 105 mmol/L (98-107); Estimated GFR 101; Glucose 108 mg/dL (83-110); Potassium 3.2 mmol/L (3.5-5.1); Sodium 139 mmol/L (136-145)
[2022-01-22] MEDS ORDERED: Potassium Chloride 20 MEQ TAB PO SCH (10:00)
[2022-01-22] MEDS: Sodium Chloride 0.9% 1,000 ML IV SCH (11:26)
[2022-01-22 11:36] VITALS: BP 167/95; TEMP 98.6
== END 2022-01-22 14:14 | disposition home health service (06) | DRG 871 ==
LOC: ERS 16:10 → 2NO 20:39
PROVIDERS: ADMIT Family Medicine; ATTEND Family Medicine
PROC: XW0DXF5 Introduction of Other New Technology Therapeutic Substance into Mouth and Pharynx, External Approach, New Technology Group 5 (ICD-10-PCS; principal; 2022-01-17)
PROC: 8E0ZXY6 Isolation (ICD-10-PCS; 2022-01-17)
PROC: 3E03329 Introduction of Other Anti-infective into Peripheral Vein, Percutaneous Approach (ICD-10-PCS; 2022-01-17)
DX: A41.89 Other specified sepsis (principal); J69.0 Pneumonitis due to inhalation of food and vomit; J18.9 Pneumonia, unspecified organism; U07.1 COVID-19; I48.21 Permanent atrial fibrillation; C15.9 Malignant neoplasm of esophagus, unspecified; E87.2 Acidosis; Z66 Do not resuscitate; Z51.5 Encounter for palliative care; R65.20 Severe sepsis without septic shock; G62.0 Drug-induced polyneuropathy; R79.1 Abnormal coagulation profile; T45.1X5A Adverse effect of antineoplastic and immunosuppressive drugs, initial encounter; N18.2 Chronic kidney disease, stage 2 (mild); E86.0 Dehydration; I12.9 Hypertensive chronic kidney disease with stage 1 through stage 4 chronic kidney disease, or unspecified chronic kidney disease; E83.42 Hypomagnesemia; R13.10 Dysphagia, unspecified; Z79.899 Other long term (current) drug therapy; Z79.01 Long term (current) use of anticoagulants; Z90.49 Acquired absence of other specified parts of digestive tract; Z98.890 Other specified postprocedural states; Z87.891 Personal history of nicotine dependence; Z83.1 Family history of other infectious and parasitic diseases; Z94.7 Corneal transplant status
CPT/HCPCS: 36415; 36416; 71045; 74176; 74230; 80048; 80053; 80162; 80202; 81003; 83605; 83735; 84100; 84443; 84484; 85025; 85610; 85730; 87040; 87086; 93005; 96374; 96376; J0692; J1160; J3370; J3475; J3490; J7050; U0003; U0005